=== PATIENT | female | born 1955 | race Caucasian/White ===

== ENCOUNTER 2017-12-26 17:15 | Emergency (ER) | payer MEDICARE ==
[2017-12-26 17:27] VITALS: BP 180/82; PULSE 95; RESP 18; TEMP 98.1
[2017-12-26] MEDS ORDERED: LIDOCAINE 1% INJ 10MG/ML (20 ML MDV) SQ ONE (17:33)
--- NOTE | 2017-12-26 17:42 | ED ---
General Adult HPI - General Chief complaint: Skin/Abscess/Foreign Body Stated complaint: Fish Hook In Ankle Time Seen by Provider: 12/26/17 17:33 Source: patient Mode of arrival: ambulatory Limitations: no limitations - History of Present Illness Initial comments: 62yo female with no PMH who presents today with CC of fish hook in left ankle. Pt states that she walking on her porch around 4:50pm when she felt fishing line wrap around her legs then she felt a sharp pain in the left posterior ankle and saw a fish hook sticking in her skin. Pt immediately had her bring her to the ER for removal, wound was no cleansed and pt did not take any pain medication. Pt states the pain in her ankle is not severe and localized to the area of the fish hook. Pt states her tetanus is not up to date. Patient denies any decrease ROM of the ankle, numbness, tingling, parathesias, loss of sensation, muscle weakness, recent fever, chills, shortness of breath, chest pain, back pain, abdominal pain, nausea or vomiting, numbness or tingling, dysuria or hematuria, constipation or diarrhea, headaches or visual changes, or any other complaints. Pt not on anticoagulants. - Related Data Allergies Allergy/AdvReac Type Severity Reaction Status Date / Time aspirin AdvReac Nausea Verified 12/26/17 17:24 Review of Systems ROS Statement: Those systems with pertinent positive or pertinent negative responses have been documented in the HPI. ROS Other: All systems not noted in ROS Statement are negative. Constitutional: Denies: fever, chills Eyes: Denies: eye pain ENT: Denies: ear pain, throat pain Respiratory: Denies: cough, dyspnea Cardiovascular: Denies: chest pain, palpitations Endocrine: Denies: fatigue Gastrointestinal: Denies: abdominal pain, nausea, vomiting Musculoskeletal: Denies: back pain Skin: Reports: as per HPI Neurological: Denies: headache, weakness, numbness, paresthesias, confusion Past Medical History Past Medical History: No Reported History History of Any Multi-Drug Resistant Organisms: None Reported Past Surgical History: Back Surgery Past Psychological History: No Psychological Hx Reported Smoking Status: Current every day smoker Past Alcohol Use History: None Reported Past Drug Use History: Marijuana General Exam - General Exam Comments Initial Comments: General: The patient is awake and alert, in no distress, and does not appear acutely ill. Eye: Pupils are equal, round and reactive to light, extra-ocular movements are intact. No nystagmus. There is normal conjunctiva bilaterally. No signs of icterus. Ears, nose, mouth and throat: There are moist mucous membranes and no oral lesions. Neck: The neck is supple, there is no tenderness or JVD. Cardiovascular: There is a regular rate and rhythm. No murmur, rub or gallop is appreciated. Respiratory: Lungs are clear to auscultation, respirations are non-labored, breath sounds are equal. No wheezes, stridor, rales, or rhonchi. Musculoskeletal: Normal ROM, no tenderness of the ankle joint. Strength 5/5 LE equally b/l. Sensation intact LE b/l. Pulses equal bilaterally 2+. Neurological: A&O x 3. CN II-XII intact, There are no obvious motor or sensory deficits. Coordination appears grossly intact. Speech is normal. Skin: Skin is warm and dry. Fish hook in left posterior ankle, appear superficial in skin as I can palpate entire hook and vanesa. Does not appear to have disrupted any underlying structures. Psychiatric: Cooperative, appropriate mood & affect, normal judgment. Limitations: no limitations Course Vital Signs 12/26/17 17:24 Temperature 98.1 F Pulse Rate 95 Respiratory 18 Rate Blood Pressure 180/82 O2 Sat by Pulse 97 Oximetry Procedures - Procedures Initial comment: Fish hook removal: Area cleansed with idodine, area topically anesthetized around fishhook with 1% lidocaine. Vanesa pushed through skin and clipped with wire cutters. Hook pulled back through area of entry. Bleeding was minimal and pt tolerated procedure well. Wound was extensively irrigated with sterile water, explored for FB. Bacitracin applied and covered with bandage. Medical Decision Making - Medical Decision Making 62 with no PMH with CC of fish hook in left ankle. Hook was removed there was no evidence of retained FB, or injury to underlying structures. Pt was educated on signs and symptoms of infection. Case was discussed with Dr. Layne and pt was discharged in stable condition. Disposition Clinical Impression: Fish hook injury of left lower leg Disposition: HOME SELF-CARE Condition: Good Instructions: Puncture Wound (ED) Additional Instructions: Please use over the count pain medication as needed for discomfort, as discussed. Please follow-up with family doctor in the next 2 days of symptoms have not improved. Please return to emergency room if the symptoms increase or worsen or for any other concerns. Is patient prescribed a controlled substance at d/c from ED?: No Referrals: None,Stated [Primary Care Provider] - 1-2 days Time of Disposition: 18:06
[2017-12-26] MEDS ORDERED: DIPH,PERTUS(ACELL)TETVAC-LF 0.5 ML VIAL IM ONE (17:49)
== END 2017-12-26 18:19 | disposition home or self-care (01) ==
LOC: EC 17:15
DX: S90.552A Superficial foreign body, left ankle, initial encounter (principal); F17.200 Nicotine dependence, unspecified, uncomplicated; Z88.6 Allergy status to analgesic agent; Z23 Encounter for immunization
CPT/HCPCS: 90715; 99282; 64450; 90471; J2001

== ENCOUNTER 2018-02-07 13:33 | Inpatient (IN) | payer MEDICARE ==
[2018-02-07] MEDS ORDERED: KETOROLAC 30 MG/ML 1 ML VIAL IVP STA (14:17)
[2018-02-07] MEDS ORDERED: SODIUM CHLORIDE 0.9% 1,000 ML IV STA ×2 (14:17→15:33)
[2018-02-07] MEDS ORDERED: ONDANSETRON 4 MG/2 ML VIAL IVP STA (14:17)
--- NOTE | 2018-02-07 14:37 | ED ---
General Adult HPI - General Chief complaint: Abdominal Pain Stated complaint: Kidney pain Time Seen by Provider: 02/07/18 13:55 Source: patient, RN notes reviewed Mode of arrival: wheelchair Limitations: no limitations - History of Present Illness Initial comments: 62-year-old female presents for chief complaint of left upper abdominal and flank pain x 1 day. Patient states it is a dull aching pain that starts in her left upper back and radiates to her abdomen. Patient denies radiating pain to the groin. Patient states the pain is a 10 out of 10. Patient states that sitting in a warm bath relieved her abdominal but not her back pain. Patient admits to nausea but denies vomiting. Patient states bowel movements are normal. Patient had a tubal ligation to pr because ago. No other abdominal surgeries. Patient denies any medical history. Patient denies any pain or burning with urination. Patient denies any lower extremity weakness, bladder or bowel changes, or saddle anesthesia. She denies fevers but does admit to a chill earlier today.Patient has no other complaints at this time including shortness of breath, chest pain, abdominal pain, nausea or vomiting, headache, or visual changes. - Related Data Home Medications Medication Instructions Recorded Confirmed Ibuprofen [Motrin Ib] 800 mg PO BID PRN 02/07/18 02/07/18 Allergies Allergy/AdvReac Type Severity Reaction Status Date / Time aspirin AdvReac Nausea Verified 02/07/18 14:25 Review of Systems ROS Statement: Those systems with pertinent positive or pertinent negative responses have been documented in the HPI. ROS Other: All systems not noted in ROS Statement are negative. Past Medical History Past Medical History: No Reported History History of Any Multi-Drug Resistant Organisms: None Reported Past Surgical History: Back Surgery Past Psychological History: No Psychological Hx Reported Smoking Status: Current every day smoker Past Alcohol Use History: None Reported Past Drug Use History: Marijuana General Exam Limitations: no limitations General appearance: alert, in no apparent distress Head exam: Present: atraumatic, normocephalic, normal inspection Eye exam: Present: normal appearance, PERRL, EOMI. Absent: scleral icterus, conjunctival injection, periorbital swelling ENT exam: Present: normal exam, mucous membranes moist Neck exam: Present: normal inspection, full ROM. Absent: tenderness, meningismus, lymphadenopathy Respiratory exam: Present: normal lung sounds bilaterally. Absent: respiratory distress, wheezes, rales, rhonchi, stridor Cardiovascular Exam: Present: regular rate, normal rhythm, normal heart sounds. Absent: systolic murmur, diastolic murmur, rubs, gallop, clicks GI/Abdominal exam: Present: soft, tenderness (tenderness to LUQ and LLQ), normal bowel sounds. Absent: distended, guarding, rebound, rigid Back exam: Present: CVA tenderness (L) (+ L CVA tenderness) Neurological exam: Present: alert, oriented X3, CN II-XII intact Psychiatric exam: Present: normal affect, normal mood Course Vital Signs 02/07/18 02/07/18 13:45 15:43 Temperature 97.6 F Pulse Rate 100 97 Respiratory 18 18 Rate Blood Pressure 164/72 157/69 O2 Sat by Pulse 96 93 L Oximetry Medical Decision Making - Medical Decision Making 62-year-old female presents to the ER for chief complaint of left flank and abdominal pain times one day. Patient denies fevers or chills at home. Patient does admit to nausea denies vomiting. Patient is afebrile with a temperature 97.6, pulse rate 100. CBC shows a white count of 24.3 with a left shift lactic 1.7. CMP otherwise unremarkable. Urine shows positive nitrites with large leukocyte esterase and over 182 white cells. Urine and blood were cultured. Patient given Rocephin and fluids. CT shows a moderate left hydronephrosis secondary to re-millimeter mid left ureteral calculus. No evidence of diverticulitis. There is also a right 5 mm adrenal mass. Patient has diagnosed with urosepsis and septic stone. Dr Antoine spoke with Dr Basilio who recommended admission. IV fluids and antibiotics will be continued and patient will be kept nothing by mouth. - Lab Data Result diagrams: 02/07/18 14:37 02/07/18 14:37 Lab Results 02/07/18 02/07/18 02/07/18 Range/Units 14: 14:09 14:37 WBC (3.8-10.6) k/uL RBC (3.80-5.40) m/uL Hgb (11.4-16.0) gm/dL Hct (34.0-46.0) % MCV (80.0-100.0) fL MCH (25.0-35.0) pg MCHC (31.0-37.0) g/dL RDW (11.5-15.5) % Plt Count (150-450) k/uL Neutrophils % (Manual) % Band Neutrophils % % Lymphocytes % (Manual) % Monocytes % (Manual) % Neutrophils # (Manual) (1.3-7.7) k/uL Lymphocytes # (Manual) (1.0-4.8) k/uL Monocytes # (Manual) (0-1.0) k/uL Nucleated RBCs (0-0) /100 WBC Toxic Granulation Toxic Vacuolation Poikilocytosis (manual Anisocytosis (manual) Sodium 139 (137-145) mmol/L Potassium 3.9 (3.5-5.1) mmol/L Chloride 106 (98-107) mmol/L Carbon Dioxide 23 (22-30) mmol/L Anion Gap 10 mmol/L BUN 21 H (7-17) mg/dL Creatinine 0.85 (0.52-1.04) mg/dL Est GFR (CKD-EPI)AfAm 86 (>60 ml/min/1.73 sqM) Est GFR (CKD-EPI)NonAf 75 (>60 ml/min/1.73 sqM) Glucose 225 H (74-99) mg/dL Plasma Lactic Acid Otto (0.7-2.0) mmol/L Calcium 9.6 (8.4-10.2) mg/dL Total Bilirubin 0.7 (0.2-1.3) mg/dL AST 23 (14-36) U/L ALT 25 (9-52) U/L Alkaline Phosphatase 102 (38-126) U/L Total Protein 6.9 (6.3-8.2) g/dL Albumin 4.0 (3.5-5.0) g/dL Amylase 45 (30-110) U/L Lipase 21 L (23-300) U/L Urine Color Yellow Urine Appearance Cloudy H (Clear) Urine pH 8.0 (5.0-8.0) Ur Specific [place] 1.018 (1.001-1.035) Urine Protein 1+ H (Negative) Urine Glucose (UA) 1+ H (Negative) Urine Ketones 2+ H (Negative) Urine Blood Moderate H (Negative) Urine Nitrite Positive H (Negative) Urine Bilirubin Negative (Negative) Urine Urobilinogen <2.0 (<2.0) mg/dL Ur Leukocyte Esterase Large H (Negative) Urine RBC 6 H (0-5) /hpf Urine WBC >182 H (0-5) /hpf Urine WBC Clumps Few H (None) /hpf Ur Squamous Epith Cells 5 H (0-4) /hpf Urine Bacteria Many H (None) /hpf Urine Mucus Few H (None) /hpf Urine HCG, Qual Not Detected (Not Detectd) 02/07/18 02/07/18 Range/Units 14:37 15:05 WBC 24.3 H (3.8-10.6) k/uL RBC 4.82 (3.80-5.40) m/uL Hgb 14.8 (11.4-16.0) gm/dL Hct 45.3 (34.0-46.0) % MCV 93.9 (80.0-100.0) fL MCH 30.6 (25.0-35.0) pg MCHC 32.6 (31.0-37.0) g/dL RDW 13.4 (11.5-15.5) % Plt Count 298 (150-450) k/uL Neutrophils % (Manual) 82 % Band Neutrophils % 16 % Lymphocytes % (Manual) 2 % Monocytes % (Manual) 1 % Neutrophils # (Manual) 23.80 H (1.3-7.7) k/uL Lymphocytes # (Manual) 0.49 L (1.0-4.8) k/uL Monocytes # (Manual) 0.24 (0-1.0) k/uL Nucleated RBCs 0 (0-0) /100 WBC Toxic Granulation Present Toxic Vacuolation Present Poikilocytosis (manual Present Anisocytosis (manual) Present Sodium (137-145) mmol/L Potassium (3.5-5.1) mmol/L Chloride (98-107) mmol/L Carbon Dioxide (22-30) mmol/L Anion Gap mmol/L BUN (7-17) mg/dL Creatinine (0.52-1.04) mg/dL Est GFR (CKD-EPI)AfAm (>60 ml/min/1.73 sqM) Est GFR (CKD-EPI)NonAf (>60 ml/min/1.73 sqM) Glucose (74-99) mg/dL Plasma Lactic Acid Otto 1.7 (0.7-2.0) mmol/L Calcium (8.4-10.2) mg/dL Total Bilirubin (0.2-1.3) mg/dL AST (14-36) U/L ALT (9-52) U/L Alkaline Phosphatase (38-126) U/L Total Protein (6.3-8.2) g/dL Albumin (3.5-5.0) g/dL Amylase (30-110) U/L Lipase (23-300) U/L Urine Color Urine Appearance (Clear) Urine pH (5.0-8.0) Ur Specific [place] (1.001-1.035) Urine Protein (Negative) Urine Glucose (UA) (Negative) Urine Ketones (Negative) Urine Blood (Negative) Urine Nitrite (Negative) Urine Bilirubin (Negative) Urine Urobilinogen (<2.0) mg/dL Ur Leukocyte Esterase (Negative) Urine RBC (0-5) /hpf Urine WBC (0-5) /hpf Urine WBC Clumps (None) /hpf Ur Squamous Epith Cells (0-4) /hpf Urine Bacteria (None) /hpf Urine Mucus (None) /hpf Urine HCG, Qual (Not Detectd) Disposition Clinical Impression: Kidney stone on left side, Urinary tract infection Disposition: ADMITTED IP TO THIS [facility] Condition: Good Referrals: None,Stated [Primary Care Provider] - 1-2 days Time of Disposition: 16:28
[2018-02-07 14:49] LABS: Appearance,Urine Cloudy (Clear); Bacteria,Urine Many /hpf; Bilirubin,Urine Negative (Negative); Blood,Urine Moderate (Negative); Color,Urine Yellow; Glucose,Urine (UA) 1+ (Negative); Leukocyte Esterase,Urine Large (Negative); Mucus,Urine Few /hpf; Nitrite,Urine Positive (Negative); Protein,Urine 1+ (Negative); RBC,Urine 6 /hpf (0-5); Specific Gravity,Urine 1.018 (1.001-1.035); Squamous Epithelial Cell,Urine 5 /hpf (0-4); Urobilinogen,Urine <2.0 mg/dL (<2.0); WBC,Urine >182 /hpf (0-5)
[2018-02-07] MEDS ORDERED: cefTRIAXone IN SWFI 2,000 MG/20 ML SYRINGE IVP STA (14:52)
[2018-02-07 14:53] LABS: Ketones,Urine 2+ (Negative)
[2018-02-07 14:59] LABS: HCT 45.3 % (34.0-46.0); HGB 14.8 gm/dL (11.4-16.0); MCH 30.6 pg (25.0-35.0); MCHC 32.6 g/dL (31.0-37.0); MCV 93.9 fL (80.0-100.0); Mean Platelet Volume 6.6; Platelet Count 298 k/uL (150-450); RBC 4.82 m/uL (3.80-5.40); RDW 13.4 % (11.5-15.5); WBC 24.3 k/uL (3.8-10.6)
[2018-02-07 15:04] LABS: Calcium 9.6 mg/dL (8.4-10.2); Potassium 3.9 mmol/L (3.5-5.1); Total Bilirubin 0.7 mg/dL (0.2-1.3); Total Protein 6.9 g/dL (6.3-8.2)
--- NOTE | 2018-02-07 15:07 | CT ---
EXAMINATION TYPE: CT abdomen pelvis wo con DATE OF EXAM: 02/07/2018 COMPARISON: None HISTORY: Left side flank and inguinal pain. CT DLP: 889 mGycm Automated exposure control for dose reduction was used. TECHNIQUE: Helical acquisition of images was performed from the lung bases through the pelvis. FINDINGS: LUNG BASES: Subsegmental atelectasis or infiltrate at the left lung base. LIVER/GB: No significant abnormality is appreciated. PANCREAS: No significant abnormality is seen. SPLEEN: No significant abnormality is seen. ADRENALS: 5 mm nodularity in the right adrenal gland nonspecific.. KIDNEYS: Left kidney: There is perinephric edema. There is moderate left hydronephrosis. There is a 3 mm upper pole calculus. There is a 3 mm mid ureteral calcification best seen on image 16. Right kidney: No hydronephrosis or nephrolithiasis. URINARY BLADDER: No significant abnormality is seen. ADENOPATHY: None visualized. OSSEOUS STRUCTURES: Postsurgical changes are noted. Artifact from the lumbar surgery results in sign ificant limitation of portions of the abdomen and pelvis due to artifact. BOWEL: Diverticulosis of the colon. Appendix normal. Bowel gas pattern nonspecific. OTHER: Atherosclerotic change of the aorta. Extensive postsurgical change involving the lower lumbar spine results in severe artifact which limits assessment of portions of the abdomen and pelvis. Defec t involving the iliac bone bilaterally likely postsurgical. IMPRESSION: 1. Moderate left hydronephrosis secondary to 3 mm mid left ureteral calculus. Additional 3 mm left re nal calculus also noted. 2. Diverticulosis of the colon with no CT evidence of diverticulitis. 3. 5 mm right adrenal nodule too small to characterize.
[2018-02-07 15:20] LABS: Nucleated Red Blood Cells 0 /100 WBC (0-0)
[2018-02-07 15:21] LABS: Band Neutrophils % 16 %; Lymphocytes # (M) 0.49 k/uL (1.0-4.8); Monocytes # (M) 0.24 k/uL (0-1.0); Neutrophils % (M) 82 %; Total Cells Counted 200
[2018-02-07 15:22] LABS: Anisocytosis (M) Present; Poikilocytosis (M) Present; Toxic Granulation Present; Toxic Vacuolation Present
[2018-02-07] MEDS ORDERED: MORPHINE SULFATE 4 MG/ML SYRINGE IVP STA (15:43)
--- NOTE | 2018-02-07 16:07 | XR ---
Abdomen HISTORY: Left-sided abdominal pain Frontal view the abdomen submitted on 2 images. Exam correlated to prior CT on same date earlier time Postoperative changes are noted at lumbosacral junction status post lumbosacral fusion. There are vas cular calcifications present. No pneumoperitoneum or bowel obstruction. Proximal left ureteral calcul us is not seen definitively. There are vascular calcifications pelvis. Lung bases are remarkable for some probable scarring or atelectasis. IMPRESSION: Proximal left ureteral calculus not well seen.
[2018-02-07] MEDS ORDERED: NALOXONE 0.4 MG/ML 1 ML VIAL IV PRN (16:20)
[2018-02-07] MEDS ORDERED: ONDANSETRON 4 MG/2 ML VIAL IVP PRN (16:20)
[2018-02-07] MEDS ORDERED: KETOROLAC 30 MG/ML 1 ML VIAL IVP PRN (16:20)
--- NOTE | 2018-02-07 18:05 | P.GSHP ---
History of Present Illness H&P Date: 02/07/18 62 yo female presents with left flank pain, nausea and malaise A kidney stone was suspected A ct scan identified a 3-4 mm mid ureteral stone with proximal hydro. This is her first stone. SHe has infected looking urine, and elevated wbc but is afebrile She is admitted for IVF , IV ab and pain medication. We will watch her for sepsis so as to decide if we will need to intervene or whether she can try to pass this spontaenously she states that she's had some bronchitis chronically. She states that her white blood cell count bounces around on a regular basis. - Constitutional Constitutional: Reports chronic pain, Reports lethargy, Reports malaise Past Medical History Past Medical History: No Reported History History of Any Multi-Drug Resistant Organisms: None Reported Past Surgical History: Back Surgery Past Psychological History: No Psychological Hx Reported Smoking Status: Current every day smoker Past Alcohol Use History: None Reported Past Drug Use History: Marijuana Medications and Allergies Home Medications Medication Instructions Recorded Confirmed Type Ibuprofen [Motrin Ib] 800 mg PO BID PRN 02/07/18 02/07/18 History Allergies Allergy/AdvReac Type Severity Reaction Status Date / Time aspirin AdvReac Nausea Verified 02/07/18 14:25 Surgical - Exam Vital Signs Temp Pulse Resp BP Pulse Ox 97.6 F 100 18 164/72 96 02/07/18 13:45 02/07/18 13:45 02/07/18 13:45 02/07/18 13:45 02/07/18 13:45 - General well developed, well nourished, moderate distress - Eyes PERRL - ENT no hearing loss - Neck trachea midline - Respiratory normal expansion, normal respiratory effort - Cardiovascular Rhythm: regular - Abdomen Abdomen: soft, non tender - Integumentary no rash, no growths - Neurologic normal coordination, normal sensation - Musculoskeletal normal posture - Psychiatric oriented to time, oriented to person, oriented to place, speech is normal, memory intact Results - Labs 02/07/18 14:37 02/07/18 14:37 Abnormal Lab Results - Last 24 Hours (Table) 02/07/18 02/07/18 02/07/18 Range/Units 14:09 14:37 14:37 WBC 24.3 H (3.8-10.6) k/uL Neutrophils # (Manual) 23.80 H (1.3-7.7) k/uL Lymphocytes # (Manual) 0.49 L (1.0-4.8) k/uL BUN 21 H (7-17) mg/dL Glucose 225 H (74-99) mg/dL Lipase 21 L (23-300) U/L Urine Appearance Cloudy H (Clear) Urine Protein 1+ H (Negative) Urine Glucose (UA) 1+ H (Negative) Urine Ketones 2+ H (Negative) Urine Blood Moderate H (Negative) Urine Nitrite Positive H (Negative) Ur Leukocyte Esterase Large H (Negative) Urine RBC 6 H (0-5) /hpf Urine WBC >182 H (0-5) /hpf Urine WBC Clumps Few H (None) /hpf Ur Squamous Epith Cells 5 H (0-4) /hpf Urine Bacteria Many H (None) /hpf Urine Mucus Few H (None) /hpf Diabetes panel 02/07/18 Range/Units 14:37 Sodium 139 (137-145) mmol/L Potassium 3.9 (3.5-5.1) mmol/L Chloride 106 (98-107) mmol/L Carbon Dioxide 23 (22-30) mmol/L BUN 21 H (7-17) mg/dL Creatinine 0.85 (0.52-1.04) mg/dL Glucose 225 H (74-99) mg/dL Calcium 9.6 (8.4-10.2) mg/dL AST 23 (14-36) U/L ALT 25 (9-52) U/L Alkaline Phosphatase 102 (38-126) U/L Total Protein 6.9 (6.3-8.2) g/dL Albumin 4.0 (3.5-5.0) g/dL Calcium panel 02/07/18 Range/Units 14:37 Calcium 9.6 (8.4-10.2) mg/dL Albumin 4.0 (3.5-5.0) g/dL Pituitary panel 02/07/18 Range/Units 14:37 Sodium 139 (137-145) mmol/L Potassium 3.9 (3.5-5.1) mmol/L Chloride 106 (98-107) mmol/L Carbon Dioxide 23 (22-30) mmol/L BUN 21 H (7-17) mg/dL Creatinine 0.85 (0.52-1.04) mg/dL Glucose 225 H (74-99) mg/dL Calcium 9.6 (8.4-10.2) mg/dL Adrenal panel 02/07/18 Range/Units 14:37 Sodium 139 (137-145) mmol/L Potassium 3.9 (3.5-5.1) mmol/L Chloride 106 (98-107) mmol/L Carbon Dioxide 23 (22-30) mmol/L BUN 21 H (7-17) mg/dL Creatinine 0.85 (0.52-1.04) mg/dL Glucose 225 H (74-99) mg/dL Calcium 9.6 (8.4-10.2) mg/dL Total Bilirubin 0.7 (0.2-1.3) mg/dL AST 23 (14-36) U/L ALT 25 (9-52) U/L Alkaline Phosphatase 102 (38-126) U/L Total Protein 6.9 (6.3-8.2) g/dL Albumin 4.0 (3.5-5.0) g/dL - Imaging CT scan - abdomen: report reviewed, image reviewed CT scan - pelvis: report reviewed, image reviewed Assessment and Plan Assessment: Impression: left ureteral stone., Elevated wbc and infected looking urine, possible sepsis Plan: Iv ab, Ivf, pain medication and possible stone manipulation
[2018-02-07] MEDS: SODIUM CHLORIDE 0.9% 1,000 ML IV SCH (18:10)
[2018-02-07] MEDS: MORPHINE SULFATE 4 MG/ML SYRINGE IV PRN (21:20)
[2018-02-08] MEDS: SODIUM CHLORIDE 0.9% 1,000 ML IV SCH ×3 (00:16→12:52)
[2018-02-08] MEDS: MORPHINE SULFATE 4 MG/ML SYRINGE IV PRN (01:25)
--- NOTE | 2018-02-08 06:40 | P.PN ---
Subjective Progress Note Date: 02/08/18 The patient is in the hospital because of a ureteral calculus possible urinary tract infection with sepsis. Her temperature max was 99.5. She had 2 shots of morphine last night because of rising blood pressure. She states she feels relatively well. I again discussed stent but she declines adamantly. I'll see her white blood cell count and temperature does this morning before deciding final treatment options. Objective - Vital Signs Vital signs: Vital Signs Temp 99.1 F 02/08/18 05:28 Pulse 102 H 02/08/18 05:28 Resp 16 02/08/18 05:28 BP 161/71 02/08/18 05:28 Pulse Ox 92 L 02/08/18 05:28 Intake & Output 02/07/18 02/07/18 02/08/18 06:59 18:59 06:59 Intake Total 330 Balance 330 Weight 81.647 kg 81.647 kg Intake: Oral 330 Other: # Voids 2 - Labs CBC & Chem 7: 02/07/18 14:37 02/07/18 14:37 Labs: Abnormal Lab Results - Last 24 Hours (Table) 02/07/18 02/07/18 02/07/18 Range/Units 14:09 14:37 14:37 WBC 24.3 H (3.8-10.6) k/uL Neutrophils # (Manual) 23.80 H (1.3-7.7) k/uL Lymphocytes # (Manual) 0.49 L (1.0-4.8) k/uL BUN 21 H (7-17) mg/dL Glucose 225 H (74-99) mg/dL Lipase 21 L (23-300) U/L Urine Appearance Cloudy H (Clear) Urine Protein 1+ H (Negative) Urine Glucose (UA) 1+ H (Negative) Urine Ketones 2+ H (Negative) Urine Blood Moderate H (Negative) Urine Nitrite Positive H (Negative) Ur Leukocyte Esterase Large H (Negative) Urine RBC 6 H (0-5) /hpf Urine WBC >182 H (0-5) /hpf Urine WBC Clumps Few H (None) /hpf Ur Squamous Epith Cells 5 H (0-4) /hpf Urine Bacteria Many H (None) /hpf Urine Mucus Few H (None) /hpf Microbiology - Last 24 Hours (Table) 02/07/18 14:09 Urine Culture - Preliminary Urine,Voided
[2018-02-08] MEDS ORDERED: cefTRIAXone IN SWFI 2,000 MG/20 ML SYRINGE IVP SCH (09:00)
[2018-02-08 09:06] LABS: HCT 38.1 % (34.0-46.0); HGB 12.2 gm/dL (11.4-16.0); MCH 30.7 pg (25.0-35.0); MCV 95.9 fL (80.0-100.0); Mean Platelet Volume 6.7; Platelet Count 232 k/uL (150-450); RBC 3.98 m/uL (3.80-5.40); RDW 13.6 % (11.5-15.5); WBC 18.8 k/uL (3.8-10.6)
[2018-02-08 12:04] VITALS: BP 146/77; PULSE 99; RESP 16; TEMP 98.8
--- NOTE | 2018-02-08 15:49 | P.DS ---
Providers Date of admission: 02/07/18 16:28 Attending physician: Armando Basilio Primary care physician: Stated None Pertinent Studies: The patient was brought in the hospital because of acute ureteral colic due to a mid left ureteral stone of 3 mm. She also had infected urine and an elevated white count but was not febrile. She has remained afebrile. She's placed on ceftriaxone. White count went from 24,000 18,000. She is feeling better. We discussed treatment options and she wishes to go home for spontaneous passage. She'll be given a prescription of Bactrim and some [place]. She'll follow-up in the office in one week. She's been instructed to contact me at any time for increasing pain nausea vomiting fever Patient Condition at Discharge: Good Plan - Discharge Summary Discharge Rx Participant: No New Discharge Prescriptions: New HYDROcodone/APAP 5-325MG [[place] 5-325] 1 tab PO Q4HR PRN #14 tab PRN Reason: Pain Control Sulfamethox-Tmp 800-160Mg [Bactrim DS 800-160 mg] 1 tab PO Q12HR #20 tab No Action Ibuprofen [Motrin Ib] 800 mg PO BID PRN PRN Reason: Pain Discharge Medication List Ibuprofen [Motrin Ib] 800 mg PO BID PRN 02/07/18 [History] HYDROcodone/APAP 5-325MG [[place] 5-325] 1 tab PO Q4HR PRN #14 tab 02/08/18 [Rx] Sulfamethox-Tmp 800-160Mg [Bactrim DS 800-160 mg] 1 tab PO Q12HR #20 tab [Rx] Follow up Appointment(s)/Referral(s): None,Stated [Primary Care Provider] - 1-2 days Armando Basilio MD [STAFF PHYSICIAN] - 1 Week
--- NOTE | 2018-02-10 11:19 | CDI ---
Last Revision, April 2017 Documentation Clarification Form Date: 02/10/18 From: Yesi Avila Claribel Sedrick, Filler Picker Hours-8:30 am & 5 pm M-F Admit Date: 02/07/2018 4:28:00 PM Patient Name: Alesia Saucedo Visit Number: [id number] Discharge Date: 02/08/18 ATTENTION: The Clinical Documentation Specialists (CDI) and [facility] Coding Staff appreciate your assistance in clarifying documentation. Please respond to the clarification below the line at the bottom and electronically sign. The CDI & [facility] Coding staff will review the response and follow-up if needed. Please note: Queries are made part of the Legal Health Record. If you have any questions, please contact the author of this message via ITS. Armando Chambers MD Possible sepsis is documented the H&P and 02/08 PN. History/Risk Factors: UTI w ureteral calculus and hydronephrosis WBC/Left Shift: 24.3/23.80 Lactic acid: 1.7 Blood cultures: none Vitals signs on admission: T-99.5, P-110, R-16, BP-157/69 Antibiotics: IV Rocephin IV Bolus: Saline 0.9% 1,000 ml IV 999 mls/hr In your professional opinion, please clarify if these findings signify one of the following conditions, whether the condition is POA, and cause, if known: Sepsis ruled out SIRS, without underlying infectious process Sepsis Other, please specify Unable to determine Please continue to document in your progress notes and discharge summary in order to capture severity of illness and risk of mortality. Include clinical findings that support your diagnosis. the patients sepsis was unclear No fever but elevated wbc associated with uti MTDD
== END 2018-02-08 17:29 | disposition home or self-care (01) | DRG 690 ==
LOC: EC 13:33 → OBSVTOIN 16:28 → 5MS5E 16:28 → INTOOBSV 16:28 → 5MS5E 17:23 → UNDODISIN 02-08 17:29 → UNDODISOB 02-08 17:29
PROVIDERS: ADMIT Urology; ATTEND Urology
DX: N13.6 Pyonephrosis (principal); E27.9 Disorder of adrenal gland, unspecified; K57.30 Diverticulosis of large intestine without perforation or abscess without bleeding; F17.200 Nicotine dependence, unspecified, uncomplicated; Z98.51 Tubal ligation status; Z88.6 Allergy status to analgesic agent
CPT/HCPCS: 36415; 74018; 74176; 80053; 81001; 81025; 82150; 83605; 83690; 85025; 85027; 87040; 87077; 87086; 87186; 96361; 96374; 96375; 96376; 99285

== ENCOUNTER 2018-03-04 15:27 | Inpatient (IN) | payer MEDICARE ==
[2018-03-04] MEDS ORDERED: IPRATROPIUM-ALBUTEROL 3 ML NEB INHALATION STA (15:47)
[2018-03-04] MEDS ORDERED: ASPIRIN 81 MG PO STA (15:47)
[2018-03-04] MEDS ORDERED: methylPREDNISolone SOD SUCCI 125 MG/2 ML VIAL IV STA (15:47)
[2018-03-04] MEDS ORDERED: SODIUM CHLORIDE 0.9% 1,000 ML IV ONE (15:47)
--- NOTE | 2018-03-04 15:51 | ED ---
SOB HPI - General Chief Complaint: Shortness of Breath Stated Complaint: diff breathing Time Seen by Provider: 03/04/18 15:39 Source: patient Mode of arrival: wheelchair Limitations: no limitations - History of Present Illness Initial Comments: Patient is a 63-year-old female, current smoker who presents with a chief complaint of shortness of breath. This is been going on for 5 days, gradually getting worse. The patient states she has had sick contacts and things that she got a cold. No aggravating or alleviating factors. Patient is hypoxic on arrival, was placed on 2 L nasal cannula and saturating 91%. - Related Data Home Medications Medication Instructions Recorded Confirmed No Known Home Medications 03/04/18 03/04/18 Allergies Allergy/AdvReac Type Severity Reaction Status Date / Time aspirin AdvReac Nausea Verified 03/04/18 16:18 Review of Systems ROS Statement: Those systems with pertinent positive or pertinent negative responses have been documented in the HPI. ROS Other: All systems not noted in ROS Statement are negative. Respiratory: Reports: cough, dyspnea, wheezes Past Medical History Past Medical History: No Reported History History of Any Multi-Drug Resistant Organisms: None Reported Past Surgical History: Back Surgery, Tubal Ligation Additional Past Surgical History / Comment(s): eye surgery Past Anesthesia/Blood Transfusion Reactions: No Reported Reaction Additional Past Anesthesia/Blood Transfusion Reaction / Comment(s): clausterphobia Past Psychological History: No Psychological Hx Reported Smoking Status: Current every day smoker Past Alcohol Use History: None Reported Past Drug Use History: None Reported - Past Family History Mother Additional Family Medical History / Comment(s): from complication from a blood transfusion Father Family Medical History: Myocardial Infarction ([place]) General Exam Limitations: no limitations General appearance: alert, in no apparent distress Head exam: Present: atraumatic, normocephalic Eye exam: Present: normal appearance ENT exam: Present: normal exam, mucous membranes moist Neck exam: Present: normal inspection Respiratory exam: Present: respiratory distress, wheezes, rales, accessory muscle use, decreased breath sounds Cardiovascular Exam: Present: normal rhythm, tachycardia GI/Abdominal exam: Present: soft. Absent: distended, tenderness Rectal exam: Present: deferred Extremities exam: Present: normal inspection. Absent: pedal edema Back exam: Present: normal inspection Neurological exam: Present: alert, oriented X3 Psychiatric exam: Present: normal affect, normal mood Skin exam: Present: warm, dry, intact Course Vital Signs 03/04/18 03/04/18 03/04/18 15:29 15:59 16:14 Temperature 97.7 F Pulse Rate 113 H 106 H 97 Respiratory 20 Rate Blood Pressure 191/83 O2 Sat by Pulse 92 L Oximetry 03/04/18 03/04/18 16:38 17:37 Temperature 97.7 F Pulse Rate 96 103 H Respiratory 22 Rate Blood Pressure O2 Sat by Pulse 96 Oximetry Medical Decision Making - Medical Decision Making The presents with chief complaint of shortness of breath. On initial evaluation , patient is tachycardic, and tachypnea. She is saturating 91% on 2 L nasal cannula. She does not normally wear oxygen at home. Patient appears sick and in mild to moderate respiratory distress. Patient placed on 4 L nasal cannula, she'll be treated with Solu-Medrol, breathing treatments, and evaluated with basic labs including cardiac profile, and chest x-ray. Patient given aspirin. 6:52 PM Lab evaluation of this patient is unremarkable. Initial troponin is negative. Patient was reevaluated after breathing treatments, remove it has increased outpatient still having wheezes and rhonchi. Chest x-ray shows no acute process , patient was sent for a CT of the chest. There is no evidence of pulmonary embolism or pneumonia however patient does have about 25% stenosis of the thoracic or abdominal aorta. No evidence of dissection in the imaged portion. At this time, given patient's increased work of breathing she'll be placed on BiPAP. The case was discussed with Dr. Esquivel who accepts admission with consult to Dr. Will. patient will be started on doxycycline, continue breathing treatments, and steroids. - Lab Data Result diagrams: 03/04/18 15:54 03/04/18 15:54 Lab Results 03/04/18 03/04/18 03/04/18 Range/Units 15:54 15:54 15:54 WBC 8.0 (3.8-10.6) k/uL RBC 5.21 (3.80-5.40) m/uL Hgb 15.7 D (11.4-16.0) gm/dL Hct 47.8 H (34.0-46.0) % MCV 91.8 (80.0-100.0) fL MCH 30.1 (25.0-35.0) pg MCHC 32.8 (31.0-37.0) g/dL RDW 13.3 (11.5-15.5) % Plt Count 266 (150-450) k/uL Neutrophils % 56 % Lymphocytes % 34 % Monocytes % 5 % Eosinophils % 3 % Basophils % 1 % Neutrophils # 4.5 (1.3-7.7) k/uL Lymphocytes # 2.7 (1.0-4.8) k/uL Monocytes # 0.4 (0-1.0) k/uL Eosinophils # 0.2 (0-0.7) k/uL Basophils # 0.0 (0-0.2) k/uL Sodium 141 (137-145) mmol/L Potassium 4.3 (3.5-5.1) mmol/L Chloride 106 (98-107) mmol/L Carbon Dioxide 23 (22-30) mmol/L Anion Gap 12 mmol/L BUN 18 H (7-17) mg/dL Creatinine 0.49 L (0.52-1.04) mg/dL Est GFR (CKD-EPI)AfAm >90 (>60 ml/min/1.73 sqM) Est GFR (CKD-EPI)NonAf >90 (>60 ml/min/1.73 sqM) Glucose 147 H (74-99) mg/dL Calcium 9.5 (8.4-10.2) mg/dL Magnesium 2.1 (1.6-2.3) mg/dL Troponin I (0.000-0.034) ng/mL NT-Pro-B Natriuret Pep 77 pg/mL 03/04/18 Range/Units 15:54 WBC (3.8-10.6) k/uL RBC (3.80-5.40) m/uL Hgb (11.4-16.0) gm/dL Hct (34.0-46.0) % MCV (80.0-100.0) fL MCH (25.0-35.0) pg MCHC (31.0-37.0) g/dL RDW (11.5-15.5) % Plt Count (150-450) k/uL Neutrophils % % Lymphocytes % % Monocytes % % Eosinophils % % Basophils % % Neutrophils # (1.3-7.7) k/uL Lymphocytes # (1.0-4.8) k/uL Monocytes # (0-1.0) k/uL Eosinophils # (0-0.7) k/uL Basophils # (0-0.2) k/uL Sodium (137-145) mmol/L Potassium (3.5-5.1) mmol/L Chloride (98-107) mmol/L Carbon Dioxide (22-30) mmol/L Anion Gap mmol/L BUN (7-17) mg/dL Creatinine (0.52-1.04) mg/dL Est GFR (CKD-EPI)AfAm (>60 ml/min/1.73 sqM) Est GFR (CKD-EPI)NonAf (>60 ml/min/1.73 sqM) Glucose (74-99) mg/dL Calcium (8.4-10.2) mg/dL Magnesium (1.6-2.3) mg/dL Troponin I <0.012 (0.000-0.034) ng/mL NT-Pro-B Natriuret Pep pg/mL Disposition Clinical Impression: COPD exacerbation, Hypoxia, Respiratory failure, Bronchitis Disposition: ADMITTED IP TO THIS HOSP Condition: Fair Is patient prescribed a controlled substance at d/c from ED?: No Referrals: None,Stated [Primary Care Provider] - 1-2 days Decision to Admit Reason: Admit from EC - Out of Hospital Transfer - Req. Specs Out of Hospital Transfer - Requested Specifics: Telemetry Unit
[2018-03-04 16:07] LABS: Basophils % (A) 1 %; Eosinophils # (A) 0.2 k/uL (0-0.7); Eosinophils % (A) 3 %; HCT 47.8 % (34.0-46.0); Lymphocytes # (A) 2.7 k/uL (1.0-4.8); Lymphocytes % (A) 34 %; MCH 30.1 pg (25.0-35.0); MCHC 32.8 g/dL (31.0-37.0); MCV 91.8 fL (80.0-100.0); Mean Platelet Volume 6.4; Monocytes # (A) 0.4 k/uL (0-1.0); Monocytes % (A) 5 %; Neutrophils # (A) 4.5 k/uL (1.3-7.7); Neutrophils % (A) 56 %; Platelet Count 266 k/uL (150-450); RBC 5.21 m/uL (3.80-5.40); RDW 13.3 % (11.5-15.5)
[2018-03-04 16:12] LABS: HGB 15.7 gm/dL (11.4-16.0)
[2018-03-04 16:18] LABS: Anion Gap 12 mmol/L; Blood Urea Nitrogen 18 mg/dL (7-17); Calcium 9.5 mg/dL (8.4-10.2); Carbon Dioxide 23 mmol/L (22-30); Chloride 106 mmol/L (98-107); Glucose 147 mg/dL (74-99); Magnesium 2.1 mg/dL (1.6-2.3); Potassium 4.3 mmol/L (3.5-5.1); Sodium 141 mmol/L (137-145)
--- NOTE | 2018-03-04 17:03 | XR ---
EXAMINATION TYPE: XR chest 2V DATE OF EXAM: 03/04/2018 COMPARISON: NONE HISTORY: Short of breath TECHNIQUE: Frontal and lateral views of the chest are obtained. FINDINGS: There is no heart failure nor confluent pneumonic infiltrate. Costophrenic angles are pritesh r. Thoracic aorta is atheromatous. There are chest leads. IMPRESSION: No active cardiopulmonary disease.
--- NOTE | 2018-03-04 18:28 | CT ---
EXAMINATION TYPE: CT chest angio for PE DATE OF EXAM: 03/04/2018 COMPARISON: None HISTORY: Difficulty breathing. CT DLP: 343 mGycm Automated exposure control for dose reduction was used. CONTRAST: CT Chest for pulmonary embolism performed with with IV Contrast, patient injected with 100 mL of Isov ue 300. There are 3-D post processed images. FINDINGS: There is mild pleural scarring and calcification at the lung apices. The lungs are clear of consolida tion. There is no evidence of a pulmonary mass. There is no pleural effusion. There is no pericardial effusion. There is normal contrast opacification of the arteries. There are n o filling defects. There is no evidence of thoracic aortic aneurysm or dissection. There is mild athe romatous change in the descending thoracic aorta. There is vertebral plaque and up to 25% stenosis in the upper abdominal aorta. There is no mediastinal adenopathy. There are no hilar masses. Heart size is normal. The bony thorax is intact. IMPRESSION: Atherosclerotic vascular disease. No evidence of pulmonary embolism.
[2018-03-04] MEDS ORDERED: NALOXONE 0.4 MG/ML 1 ML VIAL IV PRN (18:58)
[2018-03-04] MEDS ORDERED: INSULIN ASPART 100 UNIT/ML 1 ML 10 ML VIAL SQ PRN (19:19)
[2018-03-04] MEDS ORDERED: CARVEDILOL 6.25 MG TAB PO STA (19:22)
--- NOTE | 2018-03-04 19:46 | P.HPIM ---
History of Present Illness H&P Date: 03/04/18 Chief Complaint: Shortness of breath and chest pain The patient is a 63-year-old female with a significant past medical history of being smokers since age 15 who presents to the ER via private vehicle with chief complaint of increasing shortness of breath. Apparently the patient is been having increasing dyspnea and exertion shortness of breath, and increased cough over the last 5 days with productive white sputum. She denies any subjective fevers chills or night sweats, she reported severe and nonradiating left sided chest pressure with some associated lightheadedness and feeling like she was going to pass out which prompted her to come to the ER. She denies any palpitations, lower extremity swelling, paroxysmal nocturnal dyspnea. The patient has expressed that she does not have a family doctor and has not seen a physician in several years. In the ER she had a comprehensive workup, she was noted to be in respiratory distress with severe wheezes and was placed on supplemental oxygen, and initiated on antibiotics with doxycycline and started on Solu-Medrol and given a single breathing treatment and an aspirin Chest x-ray showed no acute cardiopulmonary disease. CTA of the chest was consistent with arthrosclerotic vascular disease with no evidence of PE, there was 25% stenosis in the upper abdominal aorta. Review of Systems pertinent positives per HPI all other review of systems are otherwise negative, Past Medical History Past Medical History: No Reported History History of Any Multi-Drug Resistant Organisms: None Reported Past Surgical History: Back Surgery, Tubal Ligation Additional Past Surgical History / Comment(s): eye surgery Past Anesthesia/Blood Transfusion Reactions: No Reported Reaction Additional Past Anesthesia/Blood Transfusion Reaction / Comment(s): clausterphobia Past Psychological History: No Psychological Hx Reported Smoking Status: Current every day smoker Past Alcohol Use History: None Reported Past Drug Use History: None Reported - Past Family History Mother Additional Family Medical History / Comment(s): from complication from a blood transfusion Father Family Medical History: Myocardial Infarction ([place]) Medications and Allergies Home Medications Medication Instructions Recorded Confirmed Type No Known Home Medications 03/04/18 03/04/18 History Allergies Allergy/AdvReac Type Severity Reaction Status Date / Time aspirin AdvReac Nausea Verified 03/04/18 16:18 Physical Exam Vitals: Vital Signs Temp Pulse Pulse Resp BP Pulse Ox 03/04/18 19:01 94 24 182/83 94 L 03/04/18 17:37 97.7 F 103 H 22 96 03/04/18 16:38 96 03/04/18 16:14 97 03/04/18 16:00 97 03/04/18 15:59 106 H 03/04/18 15:29 97.7 F 113 H 20 191/83 92 L Intake and Output 03/04/18 03/04/18 03/04/18 06:59 14:59 22:59 Other: Weight 79.379 kg Constitutional: Mild respiratory distress, conversant, pleasant Eyes: Anicteric sclerae, moist conjunctiva, no lid-lag, PERRLA ENMT: NC/AT,Oropharynx clear, no erythema, exudates Neck:Supple, FROM, no masses, or JVD, No carotid bruits; No thyromegaly Lungs: Diffuse wheezes, mildly increased work of breathing, with minor accessory muscle use use on 4 L nasal cannula Cardiovascular: Heart regular in rate and rhythm, No murmurs, gallops, or rubs no peripheral edema Abdominal: Soft Nontender, nom distended, no guarding, no rebound or rigidity, Normoactive bowel sounds No hepatomegaly, No splenomegaly, No palpable mass No abdominal wall hernia noted Skin: Normal temperature, tone, texture, turgor, No induration No subcutaneous nodules, No rash, lesions, No ulcers Extremities:No digital cyanosis No clubbing, Pedal pulses intact and symmetrical Radial pulses intact and symmetrical Normal gait and station, No calf tenderness Psychiatric: Alert and oriented to person, place and time, Appropriate affect Intact judgement Neuro: Muscles Strength 5/5 in all 4 extremities, Sensation to light touch grossly present throughout, Cranial nerves II-XII grossly intact. No focal sensory deficits Results CBC & Chem 7: 03/04/18 15:54 03/04/18 15:54 Labs: Abnormal Lab Results - Last 24 Hours (Table) 03/04/18 03/04/18 Range/Units 15:54 15:54 Hct 47.8 H (34.0-46.0) % BUN 18 H (7-17) mg/dL Creatinine 0.49 L (0.52-1.04) mg/dL Glucose 147 H (74-99) mg/dL Assessment and Plan (1) COPD exacerbation Current Visit: Yes Status: Acute Code(s): J44.1 - CHRONIC OBSTRUCTIVE PULMONARY DISEASE W (ACUTE) EXACERBATION SNOMED Code(s): 365528191 (2) Chest pain Current Visit: Yes Status: Acute Code(s): R07.9 - CHEST PAIN, UNSPECIFIED SNOMED Code(s): 16610769 (3) Peripheral vascular disease Current Visit: Yes Status: Acute Code(s): I73.9 - PERIPHERAL VASCULAR DISEASE, UNSPECIFIED SNOMED Code(s): 114992879 (4) Elevated blood-pressure reading without diagnosis of hypertension Current Visit: Yes Status: Acute Code(s): R03.0 - ELEVATED BLOOD-PRESSURE READING, W/O DIAGNOSIS OF HTN SNOMED Code(s): 347899106 (5) Smoking addiction Current Visit: Yes Status: Acute Code(s): F17.200 - NICOTINE DEPENDENCE, UNSPECIFIED, UNCOMPLICATED SNOMED Code(s): 223620985 Plan: The patient is admitted anticipated greater than 2 midnight stay with acute COPD exacerbation with acute respiratory distress and chest pain. Her initial troponins are negative, the patient was given aspirin will continue routine chest pain orders continue to trend sequential troponins. Patient's blood pressure is elevated without any previous diagnosis of hypertension initiated on Coreg, Plans to consult cardiology re chest pain and PVD, lipid panel stress echocardiogram ordered. Pulmonary consulted patient likely has underlying COPD not previously diagnosed, continue systemic steroids, scheduled and when necessary broken dilator breathing treatments, inhaled formoterol and doxycycline. CODE STATUS Full code Medical decision maker: Partner Trace Discussed plan of care with: Patient/partner son and daughter DVT and GI prophylaxis: Lovenox and Protonix respectively Anticipated discharge: 2-5 days
[2018-03-04] MEDS ORDERED: IPRATROPIUM-ALBUTEROL 3 ML NEB INHALATION PRN (19:49)
[2018-03-04] MEDS ORDERED: IPRATROPIUM 0.5 MG/2.5 ML NEBU INHALATION SCH (20:00)
[2018-03-04] MEDS: FORMOTEROL FUMARATE 20 MCG/2 ML NEBU INHALATION SCH (21:23)
[2018-03-04] MEDS: IPRATROPIUM-ALBUTEROL 3 ML NEB INHALATION SCH (21:24)
[2018-03-04] MEDS: DOXYCYCLINE 100 MG in SODIUM CHLORIDE 0.9% 100 ML IVPB SCH (22:51)
[2018-03-05] MEDS: methylPREDNISolone SOD SUCCI 125 MG/2 ML VIAL IV SCH ×5 (00:19→23:27)
[2018-03-05] MEDS: IPRATROPIUM-ALBUTEROL 3 ML NEB INHALATION SCH ×6 (00:28→21:14)
[2018-03-05] MEDS ORDERED: ACETAMINOPHEN TAB 325 MG TAB PO PRN (01:11)
[2018-03-05 02:32] VITALS: BMI 27.3
[2018-03-05] MEDS ORDERED: hydrALAZINE HCL 25 MG TAB PO STA (06:42)
[2018-03-05 07:25] LABS: Glucose,Whole Blood 211 mg/dL (75-99)
[2018-03-05] MEDS: FORMOTEROL FUMARATE 20 MCG/2 ML NEBU INHALATION SCH ×2 (07:52→21:14)
[2018-03-05] MEDS: DOXYCYCLINE 100 MG in SODIUM CHLORIDE 0.9% 100 ML IVPB SCH ×2 (08:13→21:04)
[2018-03-05] MEDS: ENOXAPARIN 40 MG/0.4 ML SYRINGE SQ SCH ×2 (08:13→08:17)
[2018-03-05] MEDS: PANTOPRAZOLE 40 MG TABLET PO SCH (08:13)
[2018-03-05] MEDS: ATORVASTATIN 80 MG TAB PO SCH (08:13)
[2018-03-05] MEDS: ASPIRIN 325 MG TAB PO SCH (08:13)
[2018-03-05] MEDS: NICOTINE 21MG/24HR PATCH TRANSDERM SCH (08:14)
[2018-03-05] MEDS: INSULIN ASPART 100 UNIT/ML 1 ML 10 ML VIAL SQ SCH ×4 (08:34→21:05)
[2018-03-05] MEDS: CARVEDILOL 12.5 MG TAB PO SCH ×2 (09:22→17:11)
[2018-03-05 09:29] LABS: Basophils % (A) 0 %; Eosinophils # (A) 0.1 k/uL (0-0.7); Eosinophils % (A) 1 %; HCT 43.5 % (34.0-46.0); HGB 14.5 gm/dL (11.4-16.0); Lymphocytes # (A) 1.2 k/uL (1.0-4.8); Lymphocytes % (A) 9 %; MCH 30.5 pg (25.0-35.0); MCHC 33.3 g/dL (31.0-37.0); MCV 91.6 fL (80.0-100.0); Mean Platelet Volume 6.8; Monocytes # (A) 0.1 k/uL (0-1.0); Monocytes % (A) 1 %; Neutrophils # (A) 12.7 k/uL (1.3-7.7); Neutrophils % (A) 90 %; Platelet Count 257 k/uL (150-450); RBC 4.74 m/uL (3.80-5.40); RDW 13.4 % (11.5-15.5); WBC 14.2 k/uL (3.8-10.6)
--- NOTE | 2018-03-05 09:57 | P.PN ---
Subjective Progress Note Date: 03/05/18 63 yo F with PMH of smoking (1-1.5 PPD x 50 years) presented to the ED for shortness of breath for 1 week w/ cough and occassional white phlegm. C/o L- sided chest pain w/ some lightheadedness but denied fever, chills, orthopnea, or PND. Patient hadn't seen a physician in decades. Patient was noted to have wheezing w/ CTA negative for PE. She was started on Solumedrol, Duonebs and Doxycycline. Cardiology and Pulmonary were consulted. The patient was seen and examined at the bedside. Patient notes her breathing is improved since admission and had no further episodes of chest pain. She denied fever, chills, nausea, vomiting, chest pain, diarrhea, dysuria, or dizziness. Objective - Vital Signs Vital signs: Vital Signs Temp 97.8 F 03/05/18 06:15 Pulse 104 H 03/05/18 08:10 Resp 20 03/05/18 06:15 BP 189/93 03/05/18 06:15 Pulse Ox 93 L 03/05/18 06:15 Intake & Output 03/04/18 03/05/18 03/05/18 18:59 06:59 18:59 Weight 79.379 kg 79.4 kg Other: Voiding Method Toilet # Voids 2 - Exam General: Non-toxic, in no acute distress HEENT: NC/AT, anicteric sclerae, moist conjunctiva, no lid-lag, PERRLA, oropharynx clear, no erythema, exudates, oropharynx dry, poor dentition Cardiovascular: S1/S2 wnl, no murmurs, rubs, or gallops Lungs: Inspiratory and expiratory wheezing diffusely, normal respiratory effort , no accessory muscle use, no conversational dyspnea Abdominal: Soft, nontender, non-distended, no guarding, rebound, or rigidity, normoactive bowel sounds Skin: Warm, dry Extremities: No edema or contractures Psychiatric: Alert and oriented to person, place and time, appropriate affect, Intact judgment Neuro: CN II-XII grossly intact, no focal motor deficits - Labs CBC & Chem 7: 03/05/18 08:57 03/04/18 15:54 Labs: Abnormal Lab Results - Last 24 Hours (Table) 03/04/18 03/04/18 03/05/18 Range/Units 15:54 15:54 07:23 WBC (3.8-10.6) k/uL Hct 47.8 H (34.0-46.0) % Neutrophils # (1.3-7.7) k/uL BUN 18 H (7-17) mg/dL Creatinine 0.49 L (0.52-1.04) mg/dL Glucose 147 H (74-99) mg/dL POC Glucose (mg/dL) 211 H (75-99) mg/dL 03/05/18 Range/Units 08:57 WBC 14.2 H (3.8-10.6) k/uL Hct (34.0-46.0) % Neutrophils # 12.7 H (1.3-7.7) k/uL BUN (7-17) mg/dL Creatinine (0.52-1.04) mg/dL Glucose (74-99) mg/dL POC Glucose (mg/dL) (75-99) mg/dL Assessment and Plan Plan: Shortness of breath with chest pain, likely acute COPD exacerbation - Continue with Solu-Medrol and bronchodilators with Insulin sliding scale. - Awaiting cardiology and pulmonary recommendations - Continue with doxycycline - C/w Aspirin 325 mg PO qd for now. C/w Lipitor 80 mg qhs for now - F/u A1C and Lipid panel Elevated BP and Tachycardia, likely secondary to COPD exacerbation and duonebs - C/w Coreg 12.5 mg bid for now. Tobacco abuse disorder - Nicotine patch DVT//GI prophylaxis - Lovenox - No indication for GI prophylaxis Discussed with: Patient Anticipated discharge date: 03/07/[address]: Home A total of 35 minutes was spent on the care of this complex patient more than 50 % of the time was spent in counseling and care coordination.
[2018-03-05 10:01] LABS: Anion Gap 12 mmol/L; Blood Urea Nitrogen 17 mg/dL (7-17); Calcium 9.3 mg/dL (8.4-10.2); Carbon Dioxide 22 mmol/L (22-30); Chloride 106 mmol/L (98-107); Cholesterol 231 mg/dL (<200); Glucose 300 mg/dL (74-99); HDL Cholesterol 46 mg/dL (40-60); LDL Cholesterol,Calculated 147 mg/dL (0-99); Potassium 4.1 mmol/L (3.5-5.1); Sodium 140 mmol/L (137-145); Triglycerides 192 mg/dL (<150)
[2018-03-05 12:27] LABS: Glucose,Whole Blood 230 mg/dL (75-99)
[2018-03-05] MEDS ORDERED: MELATONIN 5 MG TABLET PO PRN (13:55)
[2018-03-05] MEDS ORDERED: TEMAZEPAM 15 MG CAP PO PRN (14:00)
[2018-03-05] MEDS: amLODIPine 10 MG TAB PO SCH (15:05)
--- NOTE | 2018-03-05 16:14 | P.CNPUL ---
History of Present Illness Consult date: 03/05/18 Reason for consult: dyspnea History of present illness: A 63-year-old female patient, a chronic smoker, who presented to the hospital because of increased dyspnea cough chest tightness and wheezing typically of an underlying COPD exacerbation. The patient is a chronic smoker in she tried to quit smoking approximately a week ago and she hasn't smoked since. She was holding also some squeezing sensation and pressure over the left anterior chest area without any radiation. She felt slightly lightheaded. She was getting progressively more anxious as the patient was having difficulty in breathing and she was having significant limitation of exercise capacity. No palpitations. No leg swelling. No calf pain or tenderness. No pleurisy. No hemoptysis. No fever or chills. She presented herself to the emergency department and the chest x-ray showed no acute cardio pulmonary process. Subsequently computed tomography scan of the chest was done that showed no evidence of any pneumonia. There was some limited changes consistent with emphysema. No evidence of any dissection. Mediastinal structures were all within normal limits. The patient is currently in normal sinus rhythm. No significant leukocytosis. The electrolytes and renal function are all within normal limits. BNP level is at 77. Cardiac enzymes are negative. Since admission, the patient was placed on DuoNeb nebulized treatments around the clock, IV Solu-Medrol and empiric antibiotic coverage with doxycycline. Clinically she is feeling better compared to yesterday. She claims that her Solu Medrol treatment is making her very anxious and shaky and Sinemet was also made her lose her sleep and she is having insomnia having difficulties in falling sleep during her current hospital stay. Review of Systems Constitutional: Reports as per HPI Eyes: denies blurred vision, denies bulging eye, denies decreased vision Ears: deny: decreased hearing, ear discharge, earache, tinnitus Ears, nose, mouth and throat: Denies headache, Denies sore throat Cardiovascular: Reports chest pain, Reports decreased exercise tolerance, Reports dyspnea on exertion Respiratory: Reports dyspnea Gastrointestinal: Denies abdominal pain, Denies diarrhea, Denies nausea, Denies vomiting Genitourinary: Reports as per HPI Menstruation: Reports as per HPI Musculoskeletal: Reports as per HPI Musculoskeletal: absent: ankle pain, ankle stiffness, ankle swelling Integumentary: Denies pruritus, Denies rash Neurological: Reports as per HPI Psychiatric: Reports as per HPI Endocrine: Reports as per HPI Hematologic/Lymphatic: Reports as per HPI Allergic/Immunologic: Reports as per HPI Past Medical History Past Medical History: No Reported History, COPD Additional Past Medical History / Comment(s): Chronic back pain, kidney stones History of Any Multi-Drug Resistant Organisms: None Reported Past Surgical History: Back Surgery, Tubal Ligation Additional Past Surgical History / Comment(s): 4 back surgeries w/ rods/screws/ plates, eye surgery. Past Anesthesia/Blood Transfusion Reactions: No Reported Reaction Additional Past Anesthesia/Blood Transfusion Reaction / Comment(s): Claustrophobia Past Psychological History: No Psychological Hx Reported Additional Psychological History / Comment(s): Patient lives w/ her significant other of 20 years. No primary care doctor - comes to ER when she is really sick or requires medical attention. Smoking Status: Current every day smoker Past Alcohol Use History: None Reported Additional Past Alcohol Use History / Comment(s): Patient states she was down to 1/2 PPD then increased to 1 PPD - states she hasn't smoked since 02-28-18. Past Drug Use History: Marijuana Additional Drug Use History / Comment(s): Patient states she smokes marijuana for medical purposes. - Past Family History Mother Additional Family Medical History / Comment(s): from complication from a blood transfusion Father Family Medical History: Myocardial Infarction ([place]) Medications and Allergies Home Medications Medication Instructions Recorded Confirmed Type No Known Home Medications 03/04/18 03/04/18 History Allergies Allergy/AdvReac Type Severity Reaction Status Date / Time No Known Allergies Allergy Verified 03/05/18 01:35 Physical Exam Vitals: Vital Signs Temp Pulse Pulse Resp BP BP BP 03/05/18 14:18 96.7 F L 96 20 154/75 03/05/18 12:19 92 03/05/18 12:05 88 03/05/18 10:45 94 162/70 03/05/18 08:10 104 H 03/05/18 08:01 116 H 03/05/18 07:52 112 H 03/05/18 06:15 97.8 F 93 20 189/93 03/05/18 04:27 100 03/05/18 04:17 100 03/05/18 00:39 104 H 03/05/18 00:28 100 03/04/18 23:00 97.1 F L 101 H 16 165/89 03/04/18 21:41 88 03/04/18 21:34 90 03/04/18 21:32 03/04/18 21:24 90 03/04/18 20:15 97.1 F L 104 H 16 193/88 03/04/18 19:39 98.4 F 98 18 178/70 03/04/18 19:01 94 24 182/83 03/04/18 17:37 97.7 F 103 H 22 03/04/18 16:38 96 03/04/18 16:14 97 Pulse Ox 03/05/18 14:18 93 L 03/05/18 12:19 03/05/18 12:05 03/05/18 10:45 03/05/18 08:10 03/05/18 08:01 03/05/18 07:52 03/05/18 06:15 93 L 03/05/18 04:27 03/05/18 04:17 03/05/18 00:39 03/05/18 00:28 03/04/18 23:00 92 L 03/04/18 21:41 03/04/18 21:34 03/04/18 21:32 93 L 03/04/18 21:24 03/04/18 20:15 94 L 03/04/18 19:39 95 03/04/18 19:01 94 L 03/04/18 17:37 96 03/04/18 16:38 03/04/18 16:14 Intake and Output 03/05/18 03/05/18 03/05/18 06:59 14:59 22:59 Other: # Voids 2 2 2 Weight 79.4 kg Constitutional: Patient is currently on 2 L about 2 by nasal cannula. Awake alert and not in acute respiratory distress. Eyes: Anicteric sclerae, moist conjunctiva, no lid-lag, PERRLA ENMT: NC/AT,Oropharynx clear, no erythema, exudates Neck:Supple, FROM, no masses, or JVD, No carotid bruits; No thyromegaly Lungs: Diminished breath sounds bilaterally along with that there is prolongation of expiratory phase of breathing and scattered expiratory wheezes specially upon forceful exhalation maneuvers. Cardiovascular: Heart regular in rate and rhythm, No murmurs, gallops, or rubs no peripheral edema Abdominal: Soft Nontender, nom distended, no guarding, no rebound or rigidity, Normoactive bowel sounds No hepatomegaly, No splenomegaly, No palpable mass No abdominal wall hernia noted Skin: Normal temperature, tone, texture, turgor, No induration No subcutaneous nodules, No rash, lesions, No ulcers Extremities:No digital cyanosis No clubbing, Pedal pulses intact and symmetrical Radial pulses intact and symmetrical Normal gait and station, No calf tenderness Psychiatric: Alert and oriented to person, place and time, Appropriate affect Intact judgement Neuro: Muscles Strength 5/5 in all 4 extremities, Sensation to light touch grossly present throughout, Cranial nerves II-XII grossly intact. No focal sensory deficits Results - Laboratory Findings CBC and BMP: 03/05/18 08:57 03/05/18 08:57 Abnormal lab findings: Abnormal Labs 03/04/18 03/04/18 03/05/18 15:54 15:54 07:23 WBC Hct 47.8 H Neutrophils # BUN 18 H Creatinine 0.49 L Glucose 147 H POC Glucose (mg/dL) 211 H Triglycerides Cholesterol LDL Cholesterol, Calc 03/05/18 03/05/18 03/05/18 08:57 08:57 12:23 WBC 14.2 H Hct Neutrophils # 12.7 H BUN Creatinine 0.48 L Glucose 300 H POC Glucose (mg/dL) 230 H Triglycerides 192 H Cholesterol 231 H LDL Cholesterol, Calc 147 H - Diagnostic Findings Chest x-ray: image reviewed CT scan - chest: image reviewed Assessment and Plan Plan: Assessment 1 acute COPD exacerbation with secondary shortness of breath 2 chest pain likely noncardiac in nature and cardiology consults this has been placed in the patient's EKG is within normal limits and the cardiac enzymes and a BMP level is also within normal limits 3 smoker 4 peripheral vascular disease 5 hypertension 6 steroid-induced anxiety and insomnia Plan Continue current treatment. Anticipate further improvement in the patient's respiratory status with a combination of bronchodilators and steroids. We will give the patient Xanax on an as-needed basis for increased anxiety. Restoril for sleep. Echocardiogram. Cardiology is planning to do an inpatient stress test prior to her being discharged. I think this reasonable. Smoking cessation counseling was done. Outpatient PFT. Outpatient adjustments of her respiratory medications. The patient has COPD and presentation is currently is typical of an acute COPD exacerbation unless the cardiac workup shows new findings.
[2018-03-05 17:02] LABS: Glucose,Whole Blood 211 mg/dL (75-99)
[2018-03-05 17:49] LABS: Hemoglobin A1C 7.1 % (4.0-6.0)
[2018-03-05 20:39] LABS: Glucose,Whole Blood 253 mg/dL (75-99)
[2018-03-05] MEDS ORDERED: INSULIN DETEMIR 100 UNIT/ML 10 ML VIAL SQ SCH (21:00)
--- NOTE | 2018-03-05 22:05 | CONS ---
CONSULTATION CHIEF COMPLAINT: Shortness of breath. Alesia is a 63-year-old lady who came into hospital complaining of progressively worsening shortness of breath. She has been a smoker that she quit smoking 6 days ago. Has a history of hypertension, COPD, but has not been taking any medications. She is currently being treated with nebulizers, beta blockers and statins. She is also on insulin. At the time of my evaluation, she still appears short of breath. White cell count is elevated blood. Hemoglobin is normal. Creatinine is normal. Two sets of troponins are negative. EKG shows sinus tachycardia without significant ST-T wave changes. She had a CT scan of the chest that was negative for pulmonary embolism. PAST MEDICAL HISTORY: Significant for hypertension and COPD. MEDICATIONS: At home: None. ALLERGIES: None. FAMILY HISTORY: Significant for coronary artery disease in her mother. SOCIAL HISTORY: Significant for smoking that she quit 6 days ago. REVIEW OF SYSTEMS: HEENT is unremarkable. Cardiac as described above. Respiratory as described above. GI negative. : Negative. Allergy/Immunology: Negative. Skin negative. Musculoskeletal negative. Endocrine negative. Hematological negative. Derm negative. Constitutional negative. Oncological negative. Rest of the system review is not relevant. EXAM: Comfortable at rest. Heart rate is 80 beats per minute. Blood pressure is 160/70, respirations 18. There is no jugular venous distention. Chest exam reveals diminished air entry bilaterally with rhonchi. Heart exam reveals first and second heart sounds. No gallop. Abdomen is soft. Exam of extremities did not reveal edema. Peripheral pulses are felt. [employer] exam did not reveal focal neurological deficits. EKG does not reveal ischemic changes. Cardiac enzymes have been negative. ASSESSMENT: 1. Shortness of breath and chest discomfort, probably related to chronic obstructive pulmonary disease exacerbation. 2. Severe uncontrolled hypertension. PLAN: We will control the blood pressure better with Norvasc. Obtain a 2D echo for optimal control of blood pressure. Pulmonary embolism had been ruled out with a CTA and the patient is already scheduled for a dobutamine echo on Wednesday and we will follow the results and decide on further course of action. MMRIKIL / IJN: [id number] /
[2018-03-06] MEDS: IPRATROPIUM-ALBUTEROL 3 ML NEB INHALATION SCH ×6 (00:18→19:43)
[2018-03-06] MEDS: methylPREDNISolone SOD SUCCI 125 MG/2 ML VIAL IV SCH ×2 (05:53→13:10)
[2018-03-06 07:25] LABS: Glucose,Whole Blood 212 mg/dL (75-99)
[2018-03-06] MEDS: FORMOTEROL FUMARATE 20 MCG/2 ML NEBU INHALATION SCH ×2 (08:46→19:43)
[2018-03-06] MEDS: PANTOPRAZOLE 40 MG TABLET PO SCH (08:51)
[2018-03-06] MEDS: ASPIRIN 325 MG TAB PO SCH (08:51)
[2018-03-06] MEDS: amLODIPine 10 MG TAB PO SCH ×2 (08:51→15:08)
[2018-03-06] MEDS: ATORVASTATIN 80 MG TAB PO SCH (08:51)
[2018-03-06] MEDS: CARVEDILOL 12.5 MG TAB PO SCH ×3 (08:52→15:09)
[2018-03-06] MEDS: INSULIN ASPART 100 UNIT/ML 1 ML 10 ML VIAL SQ SCH ×4 (08:52→21:25)
[2018-03-06] MEDS: NICOTINE 21MG/24HR PATCH TRANSDERM SCH (08:53)
[2018-03-06] MEDS: ENOXAPARIN 40 MG/0.4 ML SYRINGE SQ SCH (08:53)
[2018-03-06] MEDS: ALPRAZolam 0.5 MG TAB PO PRN (08:56)
[2018-03-06 09:59] LABS: HCT 39.5 % (34.0-46.0); HGB 13.6 gm/dL (11.4-16.0); MCH 31.9 pg (25.0-35.0); MCHC 34.5 g/dL (31.0-37.0); MCV 92.4 fL (80.0-100.0); Mean Platelet Volume 6.7; Platelet Count 257 k/uL (150-450); RBC 4.27 m/uL (3.80-5.40); RDW 13.5 % (11.5-15.5); WBC 24.7 k/uL (3.8-10.6)
[2018-03-06] MEDS: DOXYCYCLINE 100 MG in SODIUM CHLORIDE 0.9% 100 ML IVPB SCH (10:52)
--- NOTE | 2018-03-06 13:09 | P.PN ---
Subjective Progress Note Date: 03/06/18 63 yo F with PMH of smoking (1-1.5 PPD x 50 years) presented to the ED for shortness of breath for 1 week w/ cough and occassional white phlegm. C/o L- sided chest pain w/ some lightheadedness but denied fever, chills, orthopnea, or PND. Patient hadn't seen a physician in decades. Patient was noted to have wheezing w/ CTA negative for PE. She was started on Solumedrol, Duonebs and Doxycycline. Cardiology and Pulmonary were consulted. They recommended that the patient's symptoms were likely secondary to acute COPD exacerbation. The patient was seen and examined at the bedside. Her breathing continues to improve since admission though she feels she still oxygen dependent. She otherwise denied any further episodes of chest pain, palpitations, nausea, vomiting. She also denied fever, or chills. Objective - Vital Signs Vital signs: Vital Signs Temp 97.4 F L 03/06/18 07:00 Pulse 76 03/06/18 12:31 Resp 16 03/06/18 07:00 BP 164/77 03/06/18 07:00 Pulse Ox 94 L 03/06/18 07:00 Intake & Output 03/05/18 03/06/18 03/06/18 18:59 06:59 18:59 Other: # Voids 1 2 - Exam General: Non-toxic, in no acute distress HEENT: NC/AT, anicteric sclerae, moist conjunctiva, no lid-lag, PERRLA, oropharynx clear, no erythema, exudates, oropharynx dry, poor dentition Cardiovascular: S1/S2 wnl, no murmurs, rubs, or gallops Lungs: Mild Expiratory wheezing throughout w/ decreased air entry, normal respiratory effort, no accessory muscle use, no conversational dyspnea Abdominal: Soft, nontender, non-distended, no guarding, rebound, or rigidity, normoactive bowel sounds Skin: Warm, dry Extremities: No edema or contractures Psychiatric: Alert and oriented to person, place and time, appropriate affect, Intact judgment Neuro: CN II-XII grossly intact, no focal motor deficits - Labs CBC & Chem 7: 03/06/18 09:47 03/05/18 08:57 Labs: Abnormal Lab Results - Last 24 Hours (Table) 03/05/18 03/05/18 03/05/18 Range/Units 08:57 16:56 20:37 WBC (3.8-10.6) k/uL POC Glucose (mg/dL) 211 H 253 H (75-99) mg/dL Hemoglobin A1c 7.1 H (4.0-6.0) % 03/06/18 03/06/18 Range/Units 07:20 09:47 WBC 24.7 H (3.8-10.6) k/uL POC Glucose (mg/dL) 212 H (75-99) mg/dL Hemoglobin A1c (4.0-6.0) % Assessment and Plan Plan: Shortness of breath with chest pain, likely acute COPD exacerbation - Continue with Solu-Medrol and bronchodilators with Insulin sliding scale. We' ll decrease Solu-Medrol to 40 mg every 8 hourly. - Cardiology recommendations appreciated, patient scheduled for stress test tomorrow - Continue with aspirin 325 mg and Lipitor 80 mg daily - Pulmonary recs appreciated Newly Diagnosed Type 2 DM - Will increase Levemir to 15 U qhs Elevated BP and Tachycardia, likely secondary to COPD exacerbation and duonebs - C/w Coreg 12.5 mg bid for now. Newly diagnosed5 Hyperlipidemia - Continue with Lipitor 80 daily Tobacco abuse disorder - Nicotine patch DVT//GI prophylaxis - Lovenox - No indication for GI prophylaxis Discussed with: Patient Anticipated discharge date: 03/07/[address]: Home A total of 35 minutes was spent on the care of this complex patient more than 50 % of the time was spent in counseling and care coordination.
[2018-03-06 13:16] LABS: Glucose,Whole Blood 166 mg/dL (75-99)
--- NOTE | 2018-03-06 14:07 | PN ---
PROGRESS NOTE Alesia is a 63-year-old lady was admitted to hospital with symptoms of shortness of breath. She also had uncontrolled hypertension. She had a CT scan of the chest that was negative for pulmonary embolism. At the time of my evaluation this morning, she is less short of breath and blood pressures are still poorly controlled. I am adding lisinopril 10 mg daily. The echocardiogram was not done yesterday. EXAM: Comfortable at rest. Blood pressure is poorly controlled. There is no jugular venous distention. Chest exam reveals bilateral rhonchi. Heart exam reveals first and second heart sounds. No gallop. Exam of extremities did not reveal any edema. Peripheral pulses are felt. ASSESSMENT: 1. Uncontrolled hypertension. 2. Severe chronic obstructive pulmonary disease exacerbation. PLAN: We will add lisinopril for better blood pressure control. I will obtain a 2D echo and decide on further course of action based on the echo findings. MMODL / IJN: [id number] /
[2018-03-06] MEDS: LISINOPRIL 10 MG TAB PO SCH (14:23)
[2018-03-06] MEDS: methylPREDNISolone SOD SUCCI 40 MG/ML 1 ML VIAL IV SCH ×2 (14:23→21:26)
--- NOTE | 2018-03-06 15:17 | P.PN ---
Subjective Progress Note Date: 03/06/18 A 63-year-old female patient, a chronic smoker, who presented to the hospital because of increased dyspnea cough chest tightness and wheezing typically of an underlying COPD exacerbation. The patient is a chronic smoker in she tried to quit smoking approximately a week ago and she hasn't smoked since. She was holding also some squeezing sensation and pressure over the left anterior chest area without any radiation. She felt slightly lightheaded. She was getting progressively more anxious as the patient was having difficulty in breathing and she was having significant limitation of exercise capacity. No palpitations. No leg swelling. No calf pain or tenderness. No pleurisy. No hemoptysis. No fever or chills. She presented herself to the emergency department and the chest x-ray showed no acute cardio pulmonary process. Subsequently computed tomography scan of the chest was done that showed no evidence of any pneumonia. There was some limited changes consistent with emphysema. No evidence of any dissection. Mediastinal structures were all within normal limits. The patient is currently in normal sinus rhythm. No significant leukocytosis. The electrolytes and renal function are all within normal limits. BNP level is at 77. Cardiac enzymes are negative. Since admission, the patient was placed on DuoNeb nebulized treatments around the clock, IV Solu-Medrol and empiric antibiotic coverage with doxycycline. Clinically she is feeling better compared to yesterday. She claims that her Solu Medrol treatment is making her very anxious and shaky and Sinemet was also made her lose her sleep and she is having insomnia having difficulties in falling sleep during her current hospital stay. On today's evaluation of 03/06/2018, the patient is feeling less short of breath. She still has a congested cough. No significant sputum production. No hemoptysis or pleurisy. No chest pain. She is feeling better. She feels that she has some rest or secretions which she is unable to cough out. Overall improved. Echocardiogram has not been done yet. The patient remains on a combination of DuoNeb nebulized treatment [id number]. She is on oral Zithromax. She is on IV Solu-Medrol 60 mg every 6 hours. Her anxiety is less and the patient is able to tolerate the Solu-Medrol. She slept well while being on Restoril. No other significant events overnight. She is tolerating her diet. Objective - Vital Signs Vital signs: Vital Signs Temp 97.7 F 03/06/18 14:27 Pulse 86 03/06/18 14:27 Resp 18 03/06/18 14:27 BP 145/74 03/06/18 14:27 Pulse Ox 93 L 03/06/18 14:27 Intake & Output 03/05/18 03/06/18 03/06/18 18:59 06:59 18:59 Intake Total 400 Balance 400 Intake: Oral 400 Other: # Voids 1 2 2 - Exam Constitutional: Patient is currently on 2 L about 2 by nasal cannula. Awake alert and not in acute respiratory distress. Eyes: Anicteric sclerae, moist conjunctiva, no lid-lag, PERRLA ENMT: NC/AT,Oropharynx clear, no erythema, exudates Neck:Supple, FROM, no masses, or JVD, No carotid bruits; No thyromegaly Lungs: Diminished breath sounds bilaterally along with that there is prolongation of expiratory phase of breathing and scattered expiratory wheezes specially upon forceful exhalation maneuvers. Cardiovascular: Heart regular in rate and rhythm, No murmurs, gallops, or rubs no peripheral edema Abdominal: Soft Nontender, nom distended, no guarding, no rebound or rigidity, Normoactive bowel sounds No hepatomegaly, No splenomegaly, No palpable mass No abdominal wall hernia noted Skin: Normal temperature, tone, texture, turgor, No induration No subcutaneous nodules, No rash, lesions, No ulcers Extremities:No digital cyanosis No clubbing, Pedal pulses intact and symmetrical Radial pulses intact and symmetrical Normal gait and station, No calf tenderness Psychiatric: Alert and oriented to person, place and time, Appropriate affect Intact judgement Neuro: Muscles Strength 5/5 in all 4 extremities, Sensation to light touch grossly present throughout, Cranial nerves II-XII grossly intact. No focal sensory deficits - Labs CBC & Chem 7: 03/06/18 09:47 03/05/18 08:57 Labs: Abnormal Lab Results - Last 24 Hours (Table) 03/05/18 03/05/18 03/05/18 Range/Units 08:57 16:56 20:37 WBC (3.8-10.6) k/uL POC Glucose (mg/dL) 211 H 253 H (75-99) mg/dL Hemoglobin A1c 7.1 H (4.0-6.0) % 03/06/18 03/06/18 03/06/18 Range/Units 07:20 09:47 13:14 WBC 24.7 H (3.8-10.6) k/uL POC Glucose (mg/dL) 212 H 166 H (75-99) mg/dL Hemoglobin A1c (4.0-6.0) % Assessment and Plan Plan: Assessment 1 acute COPD exacerbation with secondary shortness of breath 2 chest pain likely noncardiac in nature and cardiology consults this has been placed in the patient's EKG is within normal limits and the cardiac enzymes and a BMP level is also within normal limits 3 smoker 4 peripheral vascular disease 5 hypertension 6 steroid-induced anxiety and insomnia Plan Continue same treatment. The patient is improving. No other changes from the pulmonary standpoint on today's evaluation. Awaiting the cardiac workup to be completed including a echocardiogram and a stress test. She is clinically better. Ifurther improvement over the next 24-48 hours. We'll continue to follow. The white cell count is slightly elevated and this is related to systemic steroids.
[2018-03-06 17:41] LABS: Glucose,Whole Blood 260 mg/dL (75-99)
[2018-03-06 20:50] LABS: Glucose,Whole Blood 281 mg/dL (75-99)
[2018-03-06] MEDS: INSULIN DETEMIR 100 UNIT/ML 10 ML VIAL SQ SCH (21:25)
[2018-03-07] MEDS: IPRATROPIUM-ALBUTEROL 3 ML NEB INHALATION SCH ×6 (00:07→20:20)
[2018-03-07] MEDS: ALPRAZolam 0.5 MG TAB PO PRN ×2 (01:53→15:03)
[2018-03-07] MEDS: methylPREDNISolone SOD SUCCI 40 MG/ML 1 ML VIAL IV SCH ×3 (06:18→21:00)
[2018-03-07] MEDS: FORMOTEROL FUMARATE 20 MCG/2 ML NEBU INHALATION SCH ×2 (07:11→20:20)
[2018-03-07 07:25] LABS: Glucose,Whole Blood 188 mg/dL (75-99)
[2018-03-07] MEDS: AZITHROMYCIN 250 MG TAB PO SCH (07:49)
[2018-03-07] MEDS: ASPIRIN 325 MG TAB PO SCH (07:49)
[2018-03-07] MEDS: INSULIN ASPART 100 UNIT/ML 1 ML 10 ML VIAL SQ SCH ×4 (07:49→21:00)
[2018-03-07] MEDS: ATORVASTATIN 80 MG TAB PO SCH (07:49)
[2018-03-07] MEDS: PANTOPRAZOLE 40 MG TABLET PO SCH (07:50)
[2018-03-07] MEDS: ENOXAPARIN 40 MG/0.4 ML SYRINGE SQ SCH (07:50)
[2018-03-07] MEDS: NICOTINE 21MG/24HR PATCH TRANSDERM SCH (07:50)
[2018-03-07] MEDS ORDERED: DOBUTamine DRIP for NUC MED 500 MG in DEXTROSE/WATER 1 250ML.BAG IV ONE (09:10)
--- NOTE | 2018-03-07 09:27 | P.PN ---
Subjective Progress Note Date: 03/07/18 63 yo F with PMH of smoking (1-1.5 PPD x 50 years) presented to the ED for shortness of breath for 1 week w/ cough and occassional white phlegm. C/o L- sided chest pain w/ some lightheadedness but denied fever, chills, orthopnea, or PND. Patient hadn't seen a physician in decades. Patient was noted to have wheezing w/ CTA negative for PE. She was started on Solumedrol, Duonebs and Doxycycline. Cardiology and Pulmonary were consulted. They recommended that the patient's symptoms were likely secondary to acute COPD exacerbation. Cardiology was consulted and recommended a stress echocardiogram. The patient was seen and examined at the bedside. Her breathing continues to improve though she feels that she is still not back to her baseline. She otherwise denied any further episodes of chest pain, palpitations, nausea, vomiting. She also denied fever, chills, cough, or sputum production. Objective - Vital Signs Vital signs: Vital Signs Temp 96.4 F L 03/07/18 07:10 Pulse 89 03/07/18 07:29 Resp 20 03/07/18 07:10 BP 146/70 03/07/18 07:10 Pulse Ox 93 L 03/07/18 07:11 Intake & Output 03/06/18 03/07/18 03/07/18 18:59 06:59 18:59 Intake Total 400 Balance 400 Intake: Oral 400 Other: # Voids 2 1 # Bowel Movements 0 - Exam General: Non-toxic, in no acute distress HEENT: NC/AT, anicteric sclerae, moist conjunctiva, no lid-lag, PERRLA, oropharynx clear, no erythema, exudates, poor dentition Cardiovascular: S1/S2 wnl, no murmurs, rubs, or gallops Lungs: Expiratory wheezing throughout w/ decreased air entry, normal respiratory effort, no accessory muscle use, no conversational dyspnea Abdominal: Soft, nontender, non-distended, no guarding, rebound, or rigidity, normoactive bowel sounds Skin: Warm, dry Extremities: No edema or contractures Psychiatric: Alert and oriented to person, place and time, appropriate affect, Intact judgment Neuro: CN II-XII grossly intact, no focal motor deficits - Labs CBC & Chem 7: 03/06/18 09:47 03/05/18 08:57 Labs: Abnormal Lab Results - Last 24 Hours (Table) 03/06/18 03/06/18 03/06/18 Range/Units 09:47 13:14 17:08 WBC 24.7 H (3.8-10.6) k/uL POC Glucose (mg/dL) 166 H 260 H (75-99) mg/dL 03/06/18 03/07/18 Range/Units 20:49 07:11 WBC (3.8-10.6) k/uL POC Glucose (mg/dL) 281 H 188 H (75-99) mg/dL Assessment and Plan Plan: Shortness of breath with chest pain, likely acute COPD exacerbation - Continue with Solu-Medrol and bronchodilators with Insulin sliding scale. Continue with Solu-Medrol to 40 mg every 8 hourly. - Cardiology recommendations appreciated, patient scheduled for stress test today - Continue with aspirin 325 mg and Lipitor 80 mg daily - Pulmonary recs appreciated Newly Diagnosed Type 2 DM - Continue with Levemir to 15 U qhs Elevated BP and Tachycardia, likely secondary to COPD exacerbation and duonebs versus undiagnosed hypertension - C/w Coreg 12.5 mg bid for now. Continue with lisinopril 10 and amlodipine 10 Newly diagnosed Hyperlipidemia - Continue with Lipitor 80 daily Tobacco abuse disorder - Nicotine patch DVT//GI prophylaxis - Lovenox - Protonix Discussed with: Patient Anticipated discharge date: 03/08/[address]: Home A total of 35 minutes was spent on the care of this complex patient more than 50 % of the time was spent in counseling and care coordination.
[2018-03-07] MEDS ORDERED: ATROPINE SULFATE 0.1 MG/ML 10ML SYRINGE ONE (11:23)
[2018-03-07] MEDS ORDERED: METOPROLOL TARTRATE 5 MG/5 ML VIAL IVP ONE (11:23)
[2018-03-07] MEDS: LISINOPRIL 10 MG TAB PO SCH (11:51)
[2018-03-07 11:56] LABS: Glucose,Whole Blood 149 mg/dL (75-99)
--- NOTE | 2018-03-07 12:17 | P.STRESS ---
- Stress Test Note Stress Test Results/Findings: Exam Performed: dobutamine stress echo with con Exam Date: 03/07/18 Reason for Exam: CHEST PAIN Height: 5 ft 7 in Weight: 79.4 kg Protocol: DSE Stage: 4 Duration of Exercise: 11:10 Resting Heart Rate: 78 Resting Blood Pressure: 161/81 Maximum Achieved Heart Rate: 147 Maximum Achieved Blood Pressure: 224/68 85% PMHR: 135 100% PMHR: 159 METS: NA Technologist Comment: Stress Test Results/Findings: This is a 63-year-old female with history of hypertension, diabetes and family history of ischemic heart disease being evaluated for symptoms of chest pain and shortness of breath. Stress data: Baseline EKG showed sinus rhythm with normal [place] interval and QRS duration. Blood pressure at rest is 161/81 with pulse rate of 78. A standard dose of dobutamine was initiated 10 mics and was titrated to 40 mics. Patient achieved a maximum heart rate of 147 with a blood pressure of 224/68. EKGs taken during and after the infusion did not reveal any changes of ischemia. Patient did complain of chest pain and epigastric pain at peak exercise. This was relieved after giving IV Lopressor. Echo data: Baseline echo images showed normal wall motion and thickening. Exercise echo images showed augmentation of wall motion and thickening in all the segments. Final impression: #1 #1. Negative dobutamine stress test #2. Negative dobutamine stress echo. #3. Patient complained of epigastric and lower sternal pain at peak infusion. This was relieved after giving IV Lopressor
--- NOTE | 2018-03-07 12:40 | P.PN ---
Subjective Mrs. Saucedo is seen and examined in no acute distress. Past medical history significant for hypertension, COPD and chronic nicotine dependence. She denies history of coronary artery disease and has never seen a build and deployment engineer for any reason. Prior to arrival she was not on any daily medications. She has been started on coreg, amlodipine, lisinopril and atorvastatin. She denies any symptoms of chest pain, shortness of breath, dizziness or palpitations. She states after receiving IV steroids she does feel her heart pounding harder but not faster. Blood pressure 150/75 heart rate 88 afebrile maintaining oxygen saturation on nasal cannula. Laboratory data obtained yesterday indicates increased WBC at 24.7 up from 8 on admission. No electrolytes obtained. Objective - Vital Signs Vital signs: Vital Signs Temp 96.4 F L 03/07/18 07:10 Pulse 88 03/07/18 11:50 Resp 20 03/07/18 07:10 BP 150/75 03/07/18 11:50 Pulse Ox 93 L 03/07/18 07:11 Intake & Output 03/06/18 03/07/18 03/07/18 18:59 06:59 18:59 Intake Total 400 Balance 400 Intake: Oral 400 Other: # Voids 2 1 # Bowel Movements 0 - Exam GENERAL: Well-appearing, well-nourished and in no acute distress. NECK: Supple without JVD or thyromegaly. LUNGS: Breath sounds clear to auscultation bilaterally. Respiration equal and unlabored. No wheezes, rales or rhonchi. HEART: Regular rate and rhythm without murmurs, rubs or gallops. S1 and S2 heard. EXTREMITIES: Normal range of motion, no edema. No clubbing or cyanosis. Peripheral pulses intact. - Labs CBC & Chem 7: 03/06/18 09:47 03/05/18 08:57 Labs: Abnormal Lab Results - Last 24 Hours (Table) 03/06/18 03/06/18 03/06/18 Range/Units 13:14 17:08 20:49 POC Glucose (mg/dL) 166 H 260 H 281 H (75-99) mg/dL 03/07/18 03/07/18 Range/Units 07:11 11:53 POC Glucose (mg/dL) 188 H 149 H (75-99) mg/dL Assessment and Plan Assessment: ASSESSMENT Shortness of breath. Acute COPD exacerbation Chest pain, atypical. An acute coronary event has been ruled out with no EKG evidence of ischemia and negative cardiac enzymes. Hypertension Dyslipidemia Leukocytosis Chronic nicotine dependence PLAN Dobutamine stress echocardiogram negative for stress induced ischemia. Stable from a cardiac perspective. Smoking cessation recommended. Follow up with Dr. Patricio in 2-3 weeks. Ongoing medical management. We will continue to follow as needed. Nurse Practitioner note has been reviewed, I agree with a documented findings and plan of care. Patient was seen and examined.
--- NOTE | 2018-03-07 15:36 | P.PN ---
Subjective Progress Note Date: 03/07/18 Principal diagnosis: Acute exacerbation of COPD A 63-year-old female patient, a chronic smoker, who presented to the hospital because of increased dyspnea cough chest tightness and wheezing typically of an underlying COPD exacerbation. The patient is a chronic smoker in she tried to quit smoking approximately a week ago and she hasn't smoked since. She was holding also some squeezing sensation and pressure over the left anterior chest area without any radiation. She felt slightly lightheaded. She was getting progressively more anxious as the patient was having difficulty in breathing and she was having significant limitation of exercise capacity. No palpitations. No leg swelling. No calf pain or tenderness. No pleurisy. No hemoptysis. No fever or chills. She presented herself to the emergency department and the chest x-ray showed no acute cardio pulmonary process. Subsequently computed tomography scan of the chest was done that showed no evidence of any pneumonia. There was some limited changes consistent with emphysema. No evidence of any dissection. Mediastinal structures were all within normal limits. The patient is currently in normal sinus rhythm. No significant leukocytosis. The electrolytes and renal function are all within normal limits. BNP level is at 77. Cardiac enzymes are negative. Since admission, the patient was placed on DuoNeb nebulized treatments around the clock, IV Solu-Medrol and empiric antibiotic coverage with doxycycline. Clinically she is feeling better compared to yesterday. She claims that her Solu Medrol treatment is making her very anxious and shaky and Sinemet was also made her lose her sleep and she is having insomnia having difficulties in falling sleep during her current hospital stay. On today's evaluation of 03/06/2018, the patient is feeling less short of breath. She still has a congested cough. No significant sputum production. No hemoptysis or pleurisy. No chest pain. She is feeling better. She feels that she has some rest or secretions which she is unable to cough out. Overall improved. Echocardiogram has not been done yet. The patient remains on a combination of DuoNeb nebulized treatment [id number]. She is on oral Zithromax. She is on IV Solu-Medrol 60 mg every 6 hours. Her anxiety is less and the patient is able to tolerate the Solu-Medrol. She slept well while being on Restoril. No other significant events overnight. She is tolerating her diet. Reevaluated today on 03/07/2018, patient is feeling better, breathing a lot easier, less shortness of breath, no cough, no wheezing, no chest pain. No sputum production. No hemoptysis. Overall the patient is feeling great, hence I would recommend discharge planning in the next 24 hours. There are other issues related to her blood pressure being addressed by cardiology on the case, and she had a stress test results of which are pending. Objective - Vital Signs Vital signs: Vital Signs Temp 96.4 F L 03/07/18 07:10 Pulse 88 03/07/18 11:50 Resp 20 03/07/18 07:10 BP 150/75 03/07/18 11:50 Pulse Ox 93 L 03/07/18 07:11 Intake & Output 03/06/18 03/07/18 03/07/18 18:59 06:59 18:59 Intake Total 400 Balance 400 Intake: Oral 400 Other: # Voids 2 1 # Bowel Movements 0 - Exam Physical Exam: Revealed a 63-year-old female in no distress. Head: Atraumatic, normocephalic. Lymphatics: No lymphadenopathy. HEENT:[Neck is supple.] [No neck masses.] [No thyromegaly.] [No JVD.] Chest: [Clear throughout, no crackles, no rhonchi, no wheezes.] Cardiac Exam: [Normal S1 and S2, no S3 gallop, no murmur.] Abdomen: [Soft, nontender, no megaly, no rebound, no guarding, normal bowel sounds.] Extremities: [No clubbing, no edema, no cyanosis.] Neurological Exam: [No focal neurologic deficit.] Psychiatric: Normal mood, affect and mental status examination. - Labs CBC & Chem 7: 03/06/18 09:47 03/05/18 08:57 Labs: Abnormal Lab Results - Last 24 Hours (Table) 03/06/18 03/06/18 03/07/18 Range/Units 17:08 20:49 07:11 POC Glucose (mg/dL) 260 H 281 H 188 H (75-99) mg/dL 03/07/18 Range/Units 11:53 POC Glucose (mg/dL) 149 H (75-99) mg/dL Assessment and Plan Assessment: Impression: Acute exacerbation of COPD Chest pain, atypical, likely not cardiac in nature, if stress test is negative consider discharge planning Tobacco dependence syndrome, counseled regarding smoking cessation Benign essential hypertension. Recommendation: Patient is doing much better over the last 24 hours, consider discharge planning if cleared by cardiology today or in the next 24 hours. Follow-up with Dr. Will on outpatient basis. Time with Patient: Less than 30
[2018-03-07 17:12] LABS: Glucose,Whole Blood 199 mg/dL (75-99)
[2018-03-07] MEDS: CARVEDILOL 12.5 MG TAB PO SCH (17:37)
[2018-03-07 20:40] LABS: Glucose,Whole Blood 273 mg/dL (75-99)
[2018-03-07] MEDS: INSULIN DETEMIR 100 UNIT/ML 10 ML VIAL SQ SCH (21:00)
[2018-03-08] MEDS: IPRATROPIUM-ALBUTEROL 3 ML NEB INHALATION SCH ×4 (00:33→11:15)
[2018-03-08] MEDS: ALPRAZolam 0.5 MG TAB PO PRN (01:09)
[2018-03-08 05:44] VITALS: BP 140/63; TEMP 96.3
[2018-03-08] MEDS: methylPREDNISolone SOD SUCCI 40 MG/ML 1 ML VIAL IV SCH (06:15)
[2018-03-08] MEDS: FORMOTEROL FUMARATE 20 MCG/2 ML NEBU INHALATION SCH (07:09)
[2018-03-08 07:21] LABS: Glucose,Whole Blood 219 mg/dL (75-99)
[2018-03-08] MEDS: INSULIN ASPART 100 UNIT/ML 1 ML 10 ML VIAL SQ SCH ×2 (07:45→12:49)
[2018-03-08] MEDS: amLODIPine 10 MG TAB PO SCH (07:46)
[2018-03-08] MEDS: PANTOPRAZOLE 40 MG TABLET PO SCH (07:46)
[2018-03-08] MEDS: CARVEDILOL 12.5 MG TAB PO SCH (07:46)
[2018-03-08] MEDS: NICOTINE 21MG/24HR PATCH TRANSDERM SCH (07:47)
[2018-03-08] MEDS: ATORVASTATIN 80 MG TAB PO SCH (07:47)
[2018-03-08] MEDS: ASPIRIN 325 MG TAB PO SCH (07:47)
[2018-03-08] MEDS: ENOXAPARIN 40 MG/0.4 ML SYRINGE SQ SCH (07:47)
[2018-03-08] MEDS: LISINOPRIL 10 MG TAB PO SCH (07:47)
[2018-03-08] MEDS: AZITHROMYCIN 250 MG TAB PO SCH (07:47)
--- NOTE | 2018-03-08 09:43 | P.PN ---
Subjective Progress Note Date: 03/08/18 Principal diagnosis: COPD exacerbation Patient was seen and examined. No acute events overnight. Patient reports great improvement in her breathing since being admitted. Continues to feel winded with exertion. She denies chest pain or palpitations. No cough or wheezing. Currently on 4L O2. 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 She has no other complaints. Objective - Vital Signs Vital signs: Vital Signs Temp 96.3 F L 03/08/18 05:42 Pulse 70 03/08/18 07:28 Resp 18 03/08/18 07:20 BP 140/63 03/08/18 05:42 Pulse Ox 96 03/08/18 07:10 Intake & Output 03/07/18 03/08/18 03/08/18 18:59 06:59 18:59 Intake Total 600 600 Balance 600 600 Intake: Oral 600 600 Other: # Voids 4 2 - Exam General: [non toxic], [no distress on 4L], [appears at stated age] Derm: [warm], [dry] Head: [atraumatic], [normocephalic], [symmetric] Eyes: [EOMI], [no lid lag], [anicteric sclera] Mouth: [no lip lesion], [mucus membranes moist] Cardiovascular: [S1S2 reg], [no murmur] Lungs: [decreased breath sounds bilateral], [no rhonchi, no rales] , [no accessory muscle use] Abdominal: [soft], [ nontender to palpation], [no guarding], [no appreciable organomegaly] Ext: [no gross muscle atrophy], [no edema], [no contractures] Psych: [Alert], [oriented], [appropriate affect] - Labs CBC & Chem 7: 03/06/18 09:47 03/05/18 08:57 Labs: Abnormal Lab Results - Last 24 Hours (Table) 03/07/18 03/07/18 03/07/18 Range/Units 11:53 17:06 20:38 POC Glucose (mg/dL) 149 H 199 H 273 H (75-99) mg/dL 03/08/18 Range/Units 07:17 POC Glucose (mg/dL) 219 H (75-99) mg/dL Assessment and Plan Assessment: Assessment and Plan 1. COPD exacerbation: BNP 77 within normal limits (unlikely CHF). Trop < 0.012, EKG shows S. tachycardia, stress test negative (ruled out ACS). CXR negative. D- Dimer elevated, CTA Chest negative for PE. Continue DuoNeb QID scheduled/PRN, Formoterol 20 mcg INH BID, SoluMedrol 40 mg IV Q8H. Complete 5 total days of steroids and Abx with Prednisone and Z-pack. DME for nebulizer machine. Will DC on Albuterol inhaler, controlled inhaler and DuoNeb solution. Needs Pulmonology FU. FU Home O2 eval 2. Hypertension: BP 140/63. New onset. Continue Amlodipine 10 mg PO QD, Coreg 12.5 mg PO BID, Lisinopril 10 mg PO QD. Monitor vitals, adjust medications as necessary. FU Cardiology 3. Diabetes Mellitus: POC glucose 219. A1c 7.1. New onset. Anticipate BG to come down as she is weaned off steroids (will not DC with insulin). On Levamir 15 units QHS, ISS. Accuchecks QID. Hypoglycemic precautions. Low carb diet. Needs DM educator and Glucometer on DC. 4. Hyperlipidemia: Lipid panel shows T. Chol 231, LDL 147 and TG 192. Continue ASA 325 mg PO QD and Lipitor 80 mg PO QHS for ASCVD risk. FU Cardiology 5. Leukocytosis: WBC 24.7. Likely due to steroid use. No fever or signs of infection. Complete 5 total days of Z-pack for acute bronchitis. Transition IV steroids to PO steroids on DC. 6. DVT/GI Prophylaxis: Lovenox 40 mg SUBCUT QD, Protonix 40 mg PO QAM. Home O2 test pending. SW for nebulizer machine and BG meter. Discussed with the patient the importance of inhaler use and smoking cessation. Does not have PCP, will need adequate follow up with PCP and Pulmonology. Likely DC home today.
--- NOTE | 2018-03-08 10:21 | ECHOS ---
Stress Test Results/Findings: Exam Performed: dobutamine stress echo with con Exam Date: 03/07/18 Reason for Exam: CHEST PAIN Height: 5 ft 7 in Weight: 79.4 kg Protocol: DSE Stage: 4 Duration of Exercise: 11:10 Resting Heart Rate: 78 Resting Blood Pressure: 161/81 Maximum Achieved Heart Rate: 147 Maximum Achieved Blood Pressure: 224/68 85% PMHR: 135 100% PMHR: 159 METS: NA Technologist Comment: Stress Test Results/Findings: This is a 63-year-old female with history of hypertension, diabetes and family history of ischemic heart disease being evaluated for symptoms of chest pain and shortness of breath. Stress data: Baseline EKG showed sinus rhythm with normal [place] interval and QRS duration. Blood pressure at rest is 161/81 with pulse rate of 78. A standard dose of dobutamine was initiated 10 mics and was titrated to 40 mics. Patient achieved a maximum heart rate of 147 with a blood pressure of 224/68. EKGs taken during and after the infusion did not reveal any changes of ischemia. Patient did complain of chest pain and epigastric pain at peak exercise. This was relieved after giving IV Lopressor. Echo data: Baseline echo images showed normal wall motion and thickening. Exercise echo images showed augmentation of wall motion and thickening in all the segments. Final impression: #1 #1. Negative dobutamine stress test #2. Negative dobutamine stress echo. #3. Patient complained of epigastric and lower sternal pain at peak infusion. This was relieved after giving IV Lopressor MTDD
[2018-03-08 11:23] VITALS: RESP 16
[2018-03-08 11:28] LABS: Glucose,Whole Blood 232 mg/dL (75-99)
[2018-03-08 11:37] VITALS: PULSE 82
--- NOTE | 2018-03-08 11:52 | ECHOF ---
Referral Reason:chest pain. MEASUREMENTS -------- HEIGHT: 170.2 cm WEIGHT: 79.4 kg BP: 135/65 RVIDd: 2.9 cm (< 3.3) IVSd: 1.5 cm (0.6 - 1.1) LVIDd: 4.7 cm (3.9 - 5.3) LVPWd: 1.5 cm (0.6 - 1.1) IVSs: 2.0 cm LVIDs: 2.9 cm LVPWs: 1.9 cm LA Diam: 3.8 cm (2.7 - 3.8) Ao Diam: 3.6 cm (2.0 - 3.7) AV Cusp: 2.1 cm (1.5 - 2.6) MV EXCURSION: 17.332 mm (> 18.000) MV EF SLOPE: 98 mm/s (70 - 150) EPSS: 0.2 cm MV E Jimmy: 0.81 m/s MV DecT: 228 ms MV A Jimmy: 0.76 m/s MV E/A Ratio: 1.07 FINDINGS -------- This was a technically difficult study with suboptimal views. The left ventricular size is normal. There is moderate concentric left ventricular hypertrophy. O verall left ventricular systolic function is normal with, an EF between 55 - 60 %. The right ventricle is normal in size. The left atrial size is normal. The right atrium was not well visualized. 3 ml of Lumason was utilized for enhancement of images. The aortic valve was not well visualized. There is mild aortic valve sclerosis. There is trace to mild mitral regurgitation. The tricuspid valve appears structurally normal. The pulmonic valve was not well visualized. The aortic root size is normal. Normal inferior vena cava with normal inspiratory collapse consistent with estimated right atrial pre ssure of 5 mmHg. The inferior vena cava is mildly dilated. There is no pericardial effusion. CONCLUSIONS -------- 1. This was a technically difficult study with suboptimal views. 2. The left ventricular size is normal. 3. There is moderate concentric left ventricular hypertrophy. 4. Overall left ventricular systolic function is normal with, an EF between 55 - 60 %. 5. The right ventricle is normal in size. 6. The left atrial size is normal. 7. The right atrium was not well visualized. 8. 3 ml of Lumason was utilized for enhancement of images. 9. The aortic valve was not well visualized. 10. There is mild aortic valve sclerosis. 11. There is trace to mild mitral regurgitation. 12. The tricuspid valve appears structurally normal. 13. The pulmonic valve was not well visualized. 14. The aortic root size is normal. 15. Normal inferior vena cava with normal inspiratory collapse consistent with estimated right atrial pressure of 5 mmHg. 16. The inferior vena cava is mildly dilated. 17. There is no pericardial effusion. BUSINESS LAWYER: Pepper Freeman RDCS
--- NOTE | 2018-03-08 12:01 | P.PN ---
Subjective Progress Note Date: 03/08/18 Principal diagnosis: Acute exacerbation of COPD A 63-year-old female patient, a chronic smoker, who presented to the hospital because of increased dyspnea cough chest tightness and wheezing typically of an underlying COPD exacerbation. The patient is a chronic smoker in she tried to quit smoking approximately a week ago and she hasn't smoked since. She was holding also some squeezing sensation and pressure over the left anterior chest area without any radiation. She felt slightly lightheaded. She was getting progressively more anxious as the patient was having difficulty in breathing and she was having significant limitation of exercise capacity. No palpitations. No leg swelling. No calf pain or tenderness. No pleurisy. No hemoptysis. No fever or chills. She presented herself to the emergency department and the chest x-ray showed no acute cardio pulmonary process. Subsequently computed tomography scan of the chest was done that showed no evidence of any pneumonia. There was some limited changes consistent with emphysema. No evidence of any dissection. Mediastinal structures were all within normal limits. The patient is currently in normal sinus rhythm. No significant leukocytosis. The electrolytes and renal function are all within normal limits. BNP level is at 77. Cardiac enzymes are negative. Since admission, the patient was placed on DuoNeb nebulized treatments around the clock, IV Solu-Medrol and empiric antibiotic coverage with doxycycline. Clinically she is feeling better compared to yesterday. She claims that her Solu Medrol treatment is making her very anxious and shaky and Sinemet was also made her lose her sleep and she is having insomnia having difficulties in falling sleep during her current hospital stay. On today's evaluation of 03/06/2018, the patient is feeling less short of breath. She still has a congested cough. No significant sputum production. No hemoptysis or pleurisy. No chest pain. She is feeling better. She feels that she has some rest or secretions which she is unable to cough out. Overall improved. Echocardiogram has not been done yet. The patient remains on a combination of DuoNeb nebulized treatment [id number]. She is on oral Zithromax. She is on IV Solu-Medrol 60 mg every 6 hours. Her anxiety is less and the patient is able to tolerate the Solu-Medrol. She slept well while being on Restoril. No other significant events overnight. She is tolerating her diet. Reevaluated today on 03/07/2018, patient is feeling better, breathing a lot easier, less shortness of breath, no cough, no wheezing, no chest pain. No sputum production. No hemoptysis. Overall the patient is feeling great, hence I would recommend discharge planning in the next 24 hours. There are other issues related to her blood pressure being addressed by cardiology on the case, and she had a stress test results of which are pending. On 03/08/2018 patient seen in follow-up on medical surgical floor. She is awake and alert, continues to improve, breathing easier, she has been ambulating to the bathroom and back, and tolerating it very well, she remains on 4 L per nasal cannula, her pulse ox is 95-96%, this can probably need to further down. Patient did desaturate to 87% with walking, and she does qualify for home oxygen. No fever or chills. Occasional cough, no significant sputum production. No chest pain. Lung sounds are diminished, no rhonchi, no wheezing. To be in an stress echocardiogram was negative for any stress- induced ischemia. Patient was cleared for discharge from cardiology. She remains stable from pulmonary perspective, improving, and can be considered for discharge home today. Objective - Vital Signs Vital signs: Vital Signs Temp 96.3 F L 03/08/18 05:42 Pulse 82 03/08/18 11:26 Resp 16 03/08/18 11:26 BP 140/63 03/08/18 05:42 Pulse Ox 90 L 03/08/18 11:00 Intake & Output 03/07/18 03/08/18 03/08/18 18:59 06:59 18:59 Intake Total 600 600 Balance 600 600 Intake: Oral 600 600 Other: # Voids 4 2 - Exam Physical Exam: Revealed a 63-year-old female in no distress. Head: Atraumatic, normocephalic. Lymphatics: No lymphadenopathy. HEENT:[Neck is supple.] [No neck masses.] [No thyromegaly.] [No JVD.] Chest: [Clear throughout, no crackles, no rhonchi, no wheezes.] Cardiac Exam: [Normal S1 and S2, no S3 gallop, no murmur.] Abdomen: [Soft, nontender, no megaly, no rebound, no guarding, normal bowel sounds.] Extremities: [No clubbing, no edema, no cyanosis.] Neurological Exam: [No focal neurologic deficit.] Psychiatric: Normal mood, affect and mental status examination. - Labs CBC & Chem 7: 03/06/18 09:47 03/05/18 08:57 Labs: Abnormal Lab Results - Last 24 Hours (Table) 03/07/18 03/07/18 03/07/18 Range/Units 11:53 17:06 20:38 POC Glucose (mg/dL) 149 H 199 H 273 H (75-99) mg/dL 03/08/18 03/08/18 Range/Units 07:17 11:24 POC Glucose (mg/dL) 219 H 232 H (75-99) mg/dL Assessment and Plan Plan: Acute exacerbation of COPD, improved Chest pain, atypical, likely not cardiac in nature, dobutamine stress echocardiogram was negative for any evidence of stress-induced ischemia Tobacco dependence syndrome, counseled regarding smoking cessation Benign essential hypertension. Recommendation: Patient is breathing easier, no significant chest congestion, no wheezing. Awaiting ambulation. Patient does qualify for home oxygen. From pulmonary perspective patient is stable for discharge home today. Complete prednisone taper, outpatient course of antibiotics, DuoNeb nebulized treatments 4 times a day and is needed. She will need follow-up in the pulmonary office with Dr. Will in 1 week. Smoking cessation counseling was done I performed a history & physical examination of the patient and discussed their management with my nurse practitioner, Kyleigh Correa. I reviewed the nurse practitioner's note and agree with the documented findings and plan of care. Lung sounds are positive for diminished breath sounds. The findings and the impression was discussed with the patient. I attest to the documentation by the nurse practitioner. Time with Patient: Less than 30
--- NOTE | 2018-03-09 16:15 | CDI ---
Last Revision, April 2017 Documentation Clarification Form Date: 03/09/18 From: Mae Rush Phone: If you have a question regarding this query, please contact Claribel Dubose at [phone] between 8am and 5pm. Admit Date: 03/04/2018 6:58:00 PM Patient Name: Alesia Saucedo Visit Number: [id number] Discharge Date: 03/08/18 ATTENTION: The Clinical Documentation Specialists (CDI) and [facility] Coding Staff appreciate your assistance in clarifying documentation. Please respond to the clarification below the line at the bottom and electronically sign. The CDI & [facility] Coding staff will review the response and follow-up if needed. Please note: Queries are made part of the Legal Health Record. If you have any questions, please contact the author of this message via ITS. Andre Malcolm MD Uncontrolled hypertension is documented in your consult note and 03/06 progress note. Patient history/risk factors: Per Dr. Ruiz's 03/08 progress note, the patient has new onset hypertension. Patient was admitted for exacerbation of COPD. Clinical Indicators: Elevated BP. Vital Signs: 03/04 BP: 191/83, 182/83, 178/70, 193/88 Treatment: Patient was started on Amlodipine, Coreg and Lisinopril. Blood pressure was monitored. In your professional opinion, can you please clarify the uncontrolled hypertension? Crisis Emergency Urgency Other, please specify Unable to determine MTDD
--- NOTE | 2018-03-11 10:24 | CDI ---
Last Revision, April 2017 Documentation Clarification Form Date: 03/11/18 From: Mae Rush Phone: If you have a question regarding this query, please contact Claribel Dubose at [phone] between 8am and 5pm. Admit Date: 03/04/2018 6:58:00 PM Patient Name: Alesia Saucedo Visit Number: [id number] Discharge Date: 03/08/18 ATTENTION: The Clinical Documentation Specialists (CDI) and [facility] Coding Staff appreciate your assistance in clarifying documentation. Please respond to the clarification below the line at the bottom and electronically sign. The CDI & [facility] Coding staff will review the response and follow-up if needed. Please note: Queries are made part of the Legal Health Record. If you have any questions, please contact the author of this message via ITS. Andre Hernandes MD Uncontrolled hypertension is documented in your consult note and 03/06 progress note. Patient history/risk factors: Per Dr. Ruiz's 03/08 progress note, the patient has new onset hypertension. Patient was admitted for exacerbation of COPD. Clinical Indicators: Elevated BP. Vital Signs: 03/04 BP: 191/83, 182/83, 178/70, 193/88 Treatment: Patient was started on Amlodipine, Coreg and Lisinopril. Blood pressure was monitored. In your professional opinion, can you please clarify the uncontrolled hypertension? Crisis Emergency Urgency Other, please specify Unable to determine MTDD
--- NOTE | 2018-03-13 11:19 | P.DS ---
Providers Date of admission: 03/04/18 18:58 Expected date of discharge: 03/08/18 Attending physician: Renee Rodriguez DO Consults: 03/04/18 18:59 Consult Physician Routine Consulting Provider: Carol Ann Will Consult Reason/Comments: COPD, respiratory failure, hypoxia Do you want consulting provider notified?: Yes 03/04/18 19:18 Consult Physician Routine Consulting Provider: Josefa Avila Consult Reason/Comments: chest pain Do you want consulting provider notified?: Yes, Notify in am Primary care physician: Stated None - Discharge Diagnosis(es) (1) Diabetes mellitus, new onset Status: Acute (2) Hyperlipidemia Status: Acute (3) COPD exacerbation Status: Acute (4) Elevated blood-pressure reading without diagnosis of hypertension Status: Acute Hospital Course: The patient is a 63-year-old female with a significant past medical history of being smokers since age 15 who presents to the ER via private vehicle with chief complaint of increasing shortness of breath. Apparently the patient is been having increasing dyspnea and exertion shortness of breath, and increased cough over the last 5 days with productive white sputum. She denies any subjective fevers chills or night sweats, she reported severe and nonradiating left sided chest pressure with some associated lightheadedness and feeling like she was going to pass out which prompted her to come to the ER. She denies any palpitations, lower extremity swelling, paroxysmal nocturnal dyspnea. With regard to her shortness of breath, BNP was 77 within normal limits. Echocardiogram was done and showed ejection fraction of 55-60% with moderate concentric LVH. Initial troponin was less than 0.012 with EKG showing sinus tachycardia. Stress test was performed and was negative. Chest x-ray was negative. D-dimer was initially elevated, CTA of the chest was performed and was negative for pulmonary embolus. Patient was continued on duo nebs 4 times a day scheduled and as needed along with formoterol inhalation twice a day and Solu-Medrol IV for treatment of COPD exacerbation. She was to complete a total of 5 days of steroids and antibiotics with prednisone and azithromycin. DME was consulted for a nebulizer machine and glucometer. Patient's home medication of amlodipine, Coreg, lisinopril were restarted for her hypertension. Patient was also noted to be hyperglycemic during her hospitalization. This was thought to be secondary to steroids. Her A1c was obtained and was 7.1. She was started on Levemir 15 units at bedtime. She was discharged after diabetes education. She was not discharged on insulin, was advised to follow- up with her PCP to start by mouth medication. Aspirin and Lipitor were started for ASCVD risk. Patient passed her 6 minute walk test prior to discharge. Pertinent Studies: Echo Stress test CXR Chest CTA Patient Condition at Discharge: Stable Plan - Discharge Summary Discharge Rx Participant: Yes New Discharge Prescriptions: New Albuterol Inhaler [Ventolin Hfa Inhaler] 1 - 2 puff INHALATION RT-Q6H PRN #1 inhaler PRN Reason: Shortness Of Breath amLODIPine [Norvasc] 10 mg PO DAILY #30 tab Aspirin 325 mg PO DAILY #30 tab Atorvastatin [Lipitor] 80 mg PO DAILY #30 tab Azithromycin [Zithromax] 250 mg PO DAILY #3 tab Carvedilol [Coreg*] 12.5 mg PO BID-W/MEALS #60 tab Fluticasone/Salmeterol [Fluticasone-Salmeterol 232-14] 1 puff INHALATION BID #1 device Ipratropium-Albuterol Nebulize [Duoneb 0.5 mg-3 mg/3 ml Soln] 3 ml INHALATION RT-Q4H PRN #90 ampul.neb PRN Reason: Shortness Of Breath Or Wheezing Lisinopril [Zestril] 10 mg PO DAILY #30 tab Nicotine 21Mg/24Hr Patch [Habitrol] 1 patch TRANSDERM DAILY #30 patch predniSONE 50 mg PO DAILY #3 tab Discharge Medication List Albuterol Inhaler [Ventolin Hfa Inhaler] 1 - 2 puff INHALATION RT-Q6H PRN #1 inhaler 03/08/18 [Rx] Aspirin 325 mg PO DAILY #30 tab 03/08/18 [Rx] Atorvastatin [Lipitor] 80 mg PO DAILY #30 tab 03/08/18 [Rx] Azithromycin [Zithromax] 250 mg PO DAILY #3 tab 03/08/18 [Rx] Carvedilol [Coreg*] 12.5 mg PO BID-W/MEALS #60 tab 03/08/18 [Rx] Fluticasone/Salmeterol [Fluticasone-Salmeterol 232-14] 1 puff INHALATION BID #1 device 03/08/18 [Rx] Ipratropium-Albuterol Nebulize [Duoneb 0.5 mg-3 mg/3 ml Soln] 3 ml INHALATION RT -Q4H PRN #90 ampul.neb 03/08/18 [Rx] Lisinopril [Zestril] 10 mg PO DAILY #30 tab 03/08/18 [Rx] Nicotine 21Mg/24Hr Patch [Habitrol] 1 patch TRANSDERM DAILY #30 patch 03/08/18 [ Rx] amLODIPine [Norvasc] 10 mg PO DAILY #30 tab 03/08/18 [Rx] predniSONE 50 mg PO DAILY #3 tab 03/08/18 [Rx] Follow up Appointment(s)/Referral(s): None,Stated [Primary Care Provider] - 1-2 days Andre Patricio MD [STAFF PHYSICIAN] - 03/15/18 4:30 pm Carol Ann Will MD [STAFF PHYSICIAN] - 1 Week (please call to make follow up appointment) Patient Instructions/Handouts: Type 2 Diabetes in Adults: New Diagnosis (DC), COPD (Chronic Obstructive Pulmonary Disease) (DC) Activity/Diet/Wound Care/Special Instructions: [employer] supply will supply your Glucometer and supplies for testing. [phone]. Website to register is [employer] Oxygen and Nebulizer supplied by [facility] [phone]. NO smoking, cessation information given. Please take all medications as advised. Please follow-up with her primary care provider within 1-2 days of discharge. Please follow-up with your wash crew person and your world geography teacher with the appointment given to you within 1 week of discharge. Discharge Disposition: HOME SELF-CARE
== END 2018-03-08 14:14 | disposition home or self-care (01) | DRG 192 ==
LOC: EC 15:27 → 4MS4W 18:58
PROVIDERS: ADMIT Internal Medicine; ATTEND Internal Medicine
DX: J44.1 Chronic obstructive pulmonary disease with (acute) exacerbation (principal); J44.0 Chronic obstructive pulmonary disease with (acute) lower respiratory infection; E11.51 Type 2 diabetes mellitus with diabetic peripheral angiopathy without gangrene; E78.5 Hyperlipidemia, unspecified; F17.210 Nicotine dependence, cigarettes, uncomplicated; F40.240 Claustrophobia; G47.00 Insomnia, unspecified; I10 Essential (primary) hypertension; J20.9 Acute bronchitis, unspecified; T38.0X5A Adverse effect of glucocorticoids and synthetic analogues, initial encounter; D72.829 Elevated white blood cell count, unspecified; R07.89 Other chest pain; R09.02 Hypoxemia; G89.29 Other chronic pain; M54.9 Dorsalgia, unspecified; F41.9 Anxiety disorder, unspecified; Z87.442 Personal history of urinary calculi; Z88.6 Allergy status to analgesic agent; Z98.51 Tubal ligation status; Z82.49 Family history of ischemic heart disease and other diseases of the circulatory system; R03.0 Elevated blood-pressure reading, without diagnosis of hypertension
CPT/HCPCS: 36415; 71046; 71275; 80048; 80061; 83036; 83735; 83880; 84484; 85025; 85027; 93005; 93306; 93351; 94640; 94644; 94760; 96361; 96374; 99285